=== PATIENT | female | born 1940 | race Caucasian/White ===

== ENCOUNTER → 2025-04-16 | Outpatient (CLI) | payer MEDICARE, OTHER ==
[2025-04-16 19:21] LABS: HCT 41.5 % (37.2-46.3); HGB 13.2 g/dL (12.0-15.0); MCH 31.4 pg (27.0-32.0); MCHC 31.8 g/dL (32.0-37.0); MCV 98.8 FL (80.0-97.0); NRBC Per 100 WBC 0 X 10*3/uL (0.00-0.01); Platelet Count 223 X 10*3/uL (140-440); RBC 4.20 X 10*6/uL (4.10-5.20); RDW 13.3 % (11.5-14.5); WBC 11.90 X 10*3/uL (4.50-10.00)
[2025-04-16 22:18] LABS: Anion Gap 16.10 mmol/L (4.00-12.00); BUN/Creat Ratio 35.89 Ratio (12.00-20.00); Blood Urea Nitrogen 64.6 mg/dL (9.0-27.0); Calcium 10.0 mg/dL (8.7-10.3); Carbon Dioxide 19.9 mmol/L (21.6-31.8); Chloride 105 mmol/L (96-109); Glucose 185 mg/dL (70-110); Potassium 5.5 mmol/L (3.5-5.5); Sodium 141 mmol/L (135-145)
[2025-04-16 22:19] LABS: NT-Pro-B-Type Natriuretic Pept 16290 pg/mL (0-450)
== END | disposition home or self-care (01) ==
LOC: LABWHC1 15:55
PROVIDERS: ATTEND Internal Medicine Cardiovascular Disease
DX: R07.2 Precordial pain (principal)
CPT/HCPCS: 36415; 80048; 83880; 85027

== ENCOUNTER 2025-04-24 07:08 | Inpatient (IN) | payer MEDICARE, OTHER ==
--- NOTE | 2025-04-24 07:38 | ED ---
SOB HPI - General Chief Complaint: Shortness of Breath Stated Complaint: WINNIE Time Seen by Provider: 04/24/25 07:22 Source: patient, EMS Mode of arrival: EMS - History of Present Illness Initial Comments: 84-year-old female with past medical history of coronary artery disease status post CABG x 3, TAVR who presents to the emergency department with shortness of breath. States that she has been short of breath for the past couple of days. She has had some lower extremity edema. She was on triamterene hydrochlorothiazide however her skilled laborer recently took her off due to her kidney disease. She continues to take Lasix 20 mg daily. She called her daughter this morning to state that she was having worsening respiratory distress. They did place her on 4 L of oxygen. But typically does not wear oxygen at home. She admits to a nonproductive cough. No fevers. No sick contacts. Denies history of underlying lung disease such as asthma or COPD. Patient does take steroids daily for her history of polymyalgia rheumatica. She denies history of DVT or PE. No chest pain currently. No other alleviating, precipitating or modifying factors - Related Data Home Medications Medication Instructions Recorded Confirmed Aspirin EC [Ecotrin] 325 mg PO DAILY 05/01/15 05/24/15 Atorvastatin [Lipitor] 80 mg PO HS 05/01/15 05/24/15 Calcium Carbonate [Calcium] 600 mg PO DAILY 05/01/15 05/24/15 Doxycycline Monohydrate [Oracea] 40 mg PO DAILY 05/01/15 05/24/15 Ezetimibe [Zetia] 10 mg PO HS 05/01/15 05/24/15 Glucosamine Sulfate 1,500 mg PO DAILY 05/01/15 05/24/15 Multivitamins, Thera [Multivitamin 1 tab PO DAILY 05/01/15 05/24/15 (formulary)] atenoloL [Tenormin] 25 mg PO BID 05/01/15 05/24/15 predniSONE 5 mg PO DAILY 05/01/15 05/24/15 Cholecalciferol [Vitamin D3 (25 2,000 unit PO DAILY@1200 05/24/15 05/24/15 Mcg = 1000 Iu)] Triamterene/Hydrochlorothiazid 37.5 tab PO BID 05/24/15 05/25/15 [Triamterene-Hctz 37.5-25 mg Tb] Previous Rx's Medication Instructions Recorded Artificial Tears-Hypromellose 1 drops BOTH EYES QID PRN #0 bottle 05/26/15 [Artificial Tear Drops] lisinopriL [Zestril] 2.5 mg PO DAILY #30 tab 05/26/15 Allergies Allergy/AdvReac Type Severity Reaction Status Date / Time cephalexin monohydrate Allergy Rash/Hives Verified 04/24/25 07:17 [From Keflex] clarithromycin [From Biaxin] Allergy Rash/Hives Verified 04/24/25 07:17 clonidine Allergy Dyspnea Verified 04/24/25 07:17 hydralazine HCl Allergy Rash/Hives Verified 04/24/25 07:17 [From Apresoline] amlodipine besylate AdvReac pedal edema Verified 04/24/25 07:17 [From Norvasc] sulfamethoxazole AdvReac stomach Verified 04/24/25 07:17 [From Bactrim] upset trimethoprim [From Bactrim] AdvReac stomach Verified 04/24/25 07:17 upset Review of Systems ROS Statement: Those systems with pertinent positive or pertinent negative responses have been documented in the HPI. ROS Other: All systems not noted in ROS Statement are negative. Past Medical History Past Medical History: Coronary Artery Disease (CAD), Hyperlipidemia, Hypertension, Rheumatoid Arthritis (RA) Additional Past Medical History / Comment(s): POLYMYALGIARHEAMATICA, ROSACEA History of Any Multi-Drug Resistant Organisms: None Reported Past Surgical History: Coronary Bypass/CABG, Heart Catheterization Additional Past Surgical History / Comment(s): CABG X3 in 2008, 2 HEART CATHS, LEFT CAROTID ENDARTECTOMY, ABIEL CATARACT, CRISTOBAL 05/06/15 Past Anesthesia/Blood Transfusion Reactions: No Reported Reaction Past Psychological History: No Psychological Hx Reported Smoking Status: Never smoker Past Alcohol Use History: None Reported Past Drug Use History: None Reported - Past Family History Mother Family Medical History: Hypertension General Exam General appearance: alert, in no apparent distress Head exam: Present: atraumatic, normocephalic, normal inspection Eye exam: Present: normal appearance, PERRL, EOMI. Absent: scleral icterus, conjunctival injection, periorbital swelling ENT exam: Present: normal exam, mucous membranes moist Neck exam: Present: normal inspection. Absent: tenderness, meningismus, lymphadenopathy Respiratory exam: Present: rales, accessory muscle use, other (Tachypnea). Absent: respiratory distress, wheezes, rhonchi, stridor Cardiovascular Exam: Present: regular rate, normal rhythm, normal heart sounds. Absent: systolic murmur, diastolic murmur, rubs, gallop, clicks GI/Abdominal exam: Present: soft, normal bowel sounds. Absent: distended, tenderness, guarding, rebound, rigid Extremities exam: Present: normal inspection, full ROM, pedal edema. Absent: t enderness, joint swelling, calf tenderness Back exam: Present: normal inspection Neurological exam: Present: alert, oriented X3, CN II-XII intact Psychiatric exam: Present: normal affect, normal mood Skin exam: Present: warm, dry, intact, normal color. Absent: rash Course Vital Signs 04/24/25 04/24/25 07:11 08:38 Temperature 100 F H Pulse Rate 84 73 Respiratory 40 H 30 H Rate Blood Pressure 179/69 138/59 O2 Sat by Pulse 98 97 Oximetry Medical Decision Making - Medical Decision Making Was pt. sent in by a medical professional or institution (, PA, LICENSED EMBALMER, urgent care, hospital, or halfway...) When possible be specific @ -No Did you speak to anyone other than the patient for history (EMS, parent, family, police, friend...)? What history was obtained from this source @ -Spoke with the daughter and EMS for history Did you review nursing and triage notes (agree or disagree)? Why? @ -I reviewed and agree with nursing and triage notes Were old charts reviewed (outside hosp., previous admission, EMS record, old EKG, old radiological studies, urgent care reports/EKG's, halfway records)? Report findings @ -No old charts were reviewed Differential Diagnosis (chest pain, altered mental status, abdominal pain women, abdominal pain men, vaginal bleeding, weakness, fever, dyspnea, syncope, headache, dizziness, GI bleed, back pain, seizure, CVA, palpatations, mental health, musculoskeletal)? @ -EM differential dyspnea EKG interpreted by me (3pts min.). @ -Yes which demonstrates sinus rhythm with rate of 80. AL interval 236. QRS 97. QTc of 390. Q wave in lead III. ST depression 1, 2, aVL, V4 through V6. ST depression was seen previously in the lateral leads on old EKG X-rays interpreted by me (1pt min.). @ -Yes which demonstrates congestive heart failure CT interpreted by me (1pt min.). @ -None done U/S interpreted by me (1pt. min.). @ -None done What testing was considered but not performed or refused? (CT, X-rays, U/S, labs)? Why? @ -None What meds were considered but not given or refused? Why? @ -None Did you discuss the management of the patient with other professionals (professionals i.e. , PA, LICENSED EMBALMER, lab, RT, psych nurse, older adult social work specialist, senior software qa engineer, teacher, planned giving officer, skilled nursing case manager)? Give summary @ -Spoke with Ciara from [facility] who will admit the patient Was smoking cessation discussed for >3mins.? @ -No Was critical care preformed (if so, how long)? @ -No Were there social determinants of health that impacted care today? How? (Homelessness, low income, unemployed, alcoholism, drug addiction, transportation, low edu. Level, literacy, decrease access to med. care, care home, rehab)? @ -No Was there de-escalation of care discussed even if they declined (Discuss DNR or withdrawal of care, Hospice)? DNR status @ -No What co-morbidities impacted this encounter? (DM, HTN, Smoking, COPD, CAD, Cancer, CVA, ARF, Chemo, Hep., AIDS, mental health diagnosis, sleep apnea, morbid obesity)? @ -Congestive heart failure, valvular disease, coronary artery disease Was patient admitted / discharged? Hospital course, mention meds given and route, prescriptions, significant lab abnormalities, going to OR and other pertinent info. @ -Upon arrival patient seen and evaluated in bed 7. Thorough history and physical exam was performed. IV access was established. Laboratory studies were conducted. Chest x-ray was performed. Patient appears to have exacerbation of congestive heart failure. Likely due to recent medication changes. She is given Lasix 40 mg. Procalcitonin is ordered. Leukocytosis possibly due to daily steroid use. Patient will be admitted to [facility]. Spoke with Ciara. Patient admitted in stable condition Undiagnosed new problem with uncertain prognosis? @ -No Drug Therapy requiring intensive monitoring for toxicity (Heparin, Nitro, Insulin, Cardizem)? @ -No Were any procedures done? @ -No Diagnosis/symptom? @ -Acute respiratory insufficiency, acute exacerbation of CHF, acute leukocyt osis Acute, or Chronic, or Acute on Chronic? @ -Acute on chronic Uncomplicated (without systemic symptoms) or Complicated (systemic symptoms)? @ -Complicated Side effects of treatment? @ -No Exacerbation, Progression, or Severe Exacerbation? @ -Yes Poses a threat to life or bodily function? How? (Chest pain, USA, ME, pneumonia, PE, COPD, DKA, ARF, appy, cholecystitis, CVA, Diverticulitis, Homicidal, Suicidal, threat to staff... and all critical care pts) @ -Yes this patient does require oxygen - Lab Data Result diagrams: 04/24/25 07:32 04/24/25 07:32 Lab Results 04/24/25 04/24/25 04/24/25 Range/Units 07:32 07:32 07:32 WBC 16.61 H (4.50-10.00) 10*3/uL RBC 3.72 L (4.10-5.20) 10*6/uL Hgb 12.2 (12.0-15.0) g/dL Hct 37.3 (37.2-46.3) % MCV 100.3 H (80.0-97.0) fL MCH 32.8 H (27.0-32.0) pg MCHC 32.7 (32.0-37.0) g/dL Plt Count 189 (140-440) 10*3/uL MPV 10.5 (9.5-12.2) fL Immature Gran % (Auto) 0.4 % Neutrophils % 78.3 % Lymphocytes % 9.8 % Monocytes % 9.9 % Eosinophils % 1.4 % Basophils % 0.2 % Immature Gran # 0.07 H (0.00-0.04) 10*3/uL Neutrophils # 13.00 H (1.80-7.70) 10*3/uL Lymphocytes # 1.62 (0.90-5.00) 10*3/uL Monocytes # 1.64 H (0.20-1.00) 10*3/uL Eosinophils # 0.24 (0.04-0.35) 10*3/uL Basophils # 0.04 (0.00-0.10) 10*3/uL PT 11.5 (10.0-12.5) sec INR 1.0 (<1.2) APTT 22.5 (22.0-30.0) sec Sodium 140 (137-145) mmol/L Potassium 4.2 (3.5-5.1) mmol/L Chloride 108 H (98-107) mmol/L Carbon Dioxide 24 (22-30) mmol/L Anion Gap 8 mmol/L BUN 41 H (7-17) mg/dL Creatinine 1.36 H (0.52-1.04) mg/dL Est GFR (CKD-EPI)AfAm 41 (>60 ml/min/1.73 sqM) Est GFR (CKD-EPI)NonAf 36 (>60 ml/min/1.73 sqM) Glucose 161 H (74-99) mg/dL Plasma Lactic Acid Sim (0.7-2.0) mmol/L Calcium 9.2 (8.4-10.2) mg/dL Total Bilirubin 1.4 H (0.2-1.3) mg/dL AST 52 H (14-36) U/L ALT 59 H (4-34) U/L Alkaline Phosphatase 82 (38-126) U/L Troponin I (0.000-0.034) ng/mL Total Protein 6.0 L (6.3-8.2) g/dL Albumin 3.7 (3.5-5.0) g/dL Influenza Type A (PCR) (Not Detectd) Influenza Type B (PCR) (Not Detectd) RSV (PCR) (Not Detectd) SARS-CoV-2 (PCR) (Not Detectd) 04/24/25 04/24/25 04/24/25 Range/Units 07:32 07:32 07:35 WBC (4.50-10.00) 10*3/uL RBC (4.10-5.20) 10*6/uL Hgb (12.0-15.0) g/dL Hct (37.2-46.3) % MCV (80.0-97.0) fL MCH (27.0-32.0) pg MCHC (32.0-37.0) g/dL Plt Count (140-440) 10*3/uL MPV (9.5-12.2) fL Immature Gran % (Auto) % Neutrophils % % Lymphocytes % % Monocytes % % Eosinophils % % Basophils % % Immature Gran # (0.00-0.04) 10*3/uL Neutrophils # (1.80-7.70) 10*3/uL Lymphocytes # (0.90-5.00) 10*3/uL Monocytes # (0.20-1.00) 10*3/uL Eosinophils # (0.04-0.35) 10*3/uL Basophils # (0.00-0.10) 10*3/uL PT (10.0-12.5) sec INR (<1.2) APTT (22.0-30.0) sec Sodium (137-145) mmol/L Potassium (3.5-5.1) mmol/L Chloride (98-107) mmol/L Carbon Dioxide (22-30) mmol/L Anion Gap mmol/L BUN (7-17) mg/dL Creatinine (0.52-1.04) mg/dL Est GFR (CKD-EPI)AfAm (>60 ml/min/1.73 sqM) Est GFR (CKD-EPI)NonAf (>60 ml/min/1.73 sqM) Glucose (74-99) mg/dL Plasma Lactic Acid Sim 1.6 (0.7-2.0) mmol/L Calcium (8.4-10.2) mg/dL Total Bilirubin (0.2-1.3) mg/dL AST (14-36) U/L ALT (4-34) U/L Alkaline Phosphatase (38-126) U/L Troponin I 1.310 H* (0.000-0.034) ng/mL Total Protein (6.3-8.2) g/dL Albumin (3.5-5.0) g/dL Influenza Type A (PCR) Not Detected (Not Detectd) Influenza Type B (PCR) Not Detected (Not Detectd) RSV (PCR) Not Detected (Not Detectd) SARS-CoV-2 (PCR) Not Detected (Not Detectd) Disposition Clinical Impression: Congestive heart failure, Acute respiratory distress syndrome in adult Disposition: ADMITTED IP TO THIS HOSP Condition: Serious Is patient prescribed a controlled substance at d/c from ED?: No Referrals: Nancy Shelton MD [Primary Care Provider] - 1-2 days Time of Disposition: 09:04 Decision to Admit Reason: Admit from EC Decision Date: 04/24/25 Decision Time: 09:04
[2025-04-24 07:51] LABS: Basophils # (A) 0.04 10*3/uL (0.00-0.10); Basophils % (A) 0.2 %; Eosinophils # (A) 0.24 10*3/uL (0.04-0.35); Eosinophils % (A) 1.4 %; HCT 37.3 % (37.2-46.3); HGB 12.2 g/dL (12.0-15.0); Lymphocytes # (A) 1.62 10*3/uL (0.90-5.00); Lymphocytes % (A) 9.8 %; MCH 32.8 pg (27.0-32.0); MCHC 32.7 g/dL (32.0-37.0); MCV 100.3 fL (80.0-97.0); Monocytes # (A) 1.64 10*3/uL (0.20-1.00); Monocytes % (A) 9.9 %; Neutrophils # (A) 13.00 10*3/uL (1.80-7.70); Neutrophils % (A) 78.3 %; Platelet Count 189 10*3/uL (140-440); RBC 3.72 10*6/uL (4.10-5.20); RDW 13.7 % (11.5-14.5); WBC 16.61 10*3/uL (4.50-10.00)
--- NOTE | 2025-04-24 08:16 | XR ---
EXAMINATION TYPE: XR chest 2V DATE OF EXAM: 04/24/2025 8:10 AM COMPARISON: 05/24/2015 CLINICAL INDICATION: Female, 84 years old with history of difficulty breathing, TECHNIQUE: XR chest 2V view(s) obtained. FINDINGS: The heart size is enlarged. The pulmonary vasculature is common. Diffuse increased lung markings are present bilaterally IMPRESSION: 1. Clinical correlation for congestive heart failure is recommended. [facility], Workstation: [facility] [place] [facility], 04/24/2025 8:13 AM
[2025-04-24 08:23] LABS: INR 1.0 (<1.2); Partial Thromboplastin Time 22.5 sec (22.0-30.0); Prothrombin Time 11.5 sec (10.0-12.5)
[2025-04-24 08:28] LABS: RSV Not Detected (Not Detectd)
[2025-04-24 08:30] LABS: ALT 59 U/L (4-34); AST 52 U/L (14-36); African American GFR (CKD) 41 (>60 ml/min/1.73 sqM); Albumin 3.7 g/dL (3.5-5.0); Alkaline Phosphatase 82 U/L (38-126); Anion Gap 8 mmol/L; Blood Urea Nitrogen 41 mg/dL (7-17); Calcium 9.2 mg/dL (8.4-10.2); Carbon Dioxide 24 mmol/L (22-30); Chloride 108 mmol/L (98-107); Glucose 161 mg/dL (74-99); Non-African American GFR(CKD) 36 (>60 ml/min/1.73 sqM); Potassium 4.2 mmol/L (3.5-5.1); Sodium 140 mmol/L (137-145); Total Protein 6.0 g/dL (6.3-8.2)
[2025-04-24] MEDS: ACETAMINOPHEN TAB 500 MG TAB PO STA (08:40)
[2025-04-24 09:31] LABS: NT-Pro-B-Type Natriuretic Pept 28600 pg/mL
[2025-04-24] MEDS: LEVOFLOXACIN 750 MG TAB PO STA (09:46)
[2025-04-24] MEDS: FUROSEMIDE 10 MG/ML 4 ML VIAL IV STA (09:47)
[2025-04-24] MEDS ORDERED: HEPARIN SODIUM 1,000 UN/ML (10ML VL) IV PRN (10:04)
[2025-04-24] MEDS: ASPIRIN 81 MG PO STA (11:22)
[2025-04-24] MEDS: HEPARIN SOD,PORK IN 0.45% NACL 25,000 UNIT in 0.45% NACL 1 250ML.BAG IV SCH (11:26)
[2025-04-24] MEDS: HEPARIN SODIUM 1,000 UN/ML (10ML VL) IV ONE (11:26)
[2025-04-24] MEDS: NITROGLYCERIN SL TABS 0.4 MG TAB SUBLINGUAL SCH (11:28)
--- NOTE | 2025-04-24 11:57 | P.HPIM ---
History of Present Illness This is a pleasant 84 years old female with past medical history of multiple medical problems: Coronary artery disease with no history of lung disease. She does not use oxygen at home Presents because of shortness of breath that has been going on on and off for 2 weeks associate with exertional dyspnea but yesterday got really worse she has to come to emergency room although she does not have any chest pain no cough or phlegm. Little headache but no overt dizziness or weakness or numbness in the extremities. No specific GI surgery or symptom. She is complaining from neck pain and ear pain whenever she have this shortness of breath on exertion which is retrieved once she sits down for about 15 minutes indicating it might be an anginal pain She is breathing better than since she came in Also patient had many small bowel movement Her vice president underwriting Dr. Frank Exam she has bilateral basal crepitation and 2-3+ bilateral pitting leg edema She has been afebrile blood pressure stable. Mildly tachypneic in the mid to low 20s. Saturating 97% on 3 L oxygen via nasal cannula. She has low-grade fever about 1 drink Troponin is 1.3, chronically elevated but not to this level EKG showing sinus rhythm at [address] depression in V4-V6 and aVL. Chest x-ray showing cardiomegaly with pulmonary vascular congestion I reviewed and agree. proBNP is elevated 28,600. Patient currently on IV Lasix for milligram twice daily as well as heparin drip. Also patient received Levaquin and will continue on same dose 75 mg every 48 hours She is currently on IV Lasix 40 mg twice daily heparin drip and Levaquin and aspirin Review of Systems Review of systems CONSTITUTIONAL: No fever, no malaise, no fatigue. HEENT: No recent visual problems or hearing problems. Denied any sore throat. CARDIOVASCULAR: No orthopnea, PND, no palpitations, no syncope. PULMONARY: No shortness of breath, no cough, no hemoptysis. GASTROINTESTINAL: No diarrhea, no nausea, no vomiting, no abdominal pain. Normoactive bowel sounds. NEUROLOGICAL: No headaches, no weakness, no numbness. HEMATOLOGICAL: Denies any bleeding or petechiae. GENITOURINARY: Denies any burning micturition, frequency, or urgency. MUSCULOSKELETAL/RHEUMATOLOGICAL: Denies any joint pain, swelling, or any muscle pain. ENDOCRINE: Denies any polyuria or polydipsia. Past Medical History Past Medical History: Coronary Artery Disease (CAD), Hyperlipidemia, Hypertension, Rheumatoid Arthritis (RA) Additional Past Medical History / Comment(s): POLYMYALGIARHEAMATICA, ROSACEA History of Any Multi-Drug Resistant Organisms: None Reported Past Surgical History: Coronary Bypass/CABG, Heart Catheterization Additional Past Surgical History / Comment(s): CABG X3 in 2008, 2 HEART CATHS, LEFT CAROTID ENDARTECTOMY, ABIEL CATARACT, CRISTOBAL 05/06/15 Past Anesthesia/Blood Transfusion Reactions: No Reported Reaction Past Psychological History: No Psychological Hx Reported Smoking Status: Never smoker Past Alcohol Use History: None Reported Past Drug Use History: None Reported - Past Family History Mother Family Medical History: Hypertension Medications and Allergies Home Medications Medication Instructions Recorded Confirmed Type Atorvastatin [Lipitor] 80 mg PO HS 05/01/15 04/24/25 History Ezetimibe [Zetia] 10 mg PO HS 05/01/15 04/24/25 History atenoloL [Tenormin] 25 mg PO BID 05/01/15 04/24/25 History predniSONE 5 mg PO DAILY 05/01/15 04/24/25 History Cholecalciferol [Vitamin D3 (25 50 mcg PO HS 05/24/15 04/24/25 History Mcg = 1000 Iu)] Aspirin EC [Ecotrin Low Dose] 81 mg PO DAILY 04/24/25 04/24/25 History Azelaic Acid 1 applic TOPICAL DAILY PRN 04/24/25 04/24/25 History Carboxymethylcellulose Sodium 1 drop BOTH EYES QID PRN 04/24/25 04/24/25 History [Refresh Tears] Furosemide [Lasix] 20 mg PO DAILY 04/24/25 04/24/25 History Glucosam/Deny-Msm1/C/Dennis/Bosw 2 tab PO HS 04/24/25 04/24/25 History [Glucosamine-Chondroitin Tablet] Hydrocortisone Cream 1 applic TOPICAL DAILY PRN 04/24/25 04/24/25 History [Hydrocortisone 2.5% Cream] Isosorbide Mononitrate ER [Imdur] 30 mg PO DAILY 04/24/25 04/24/25 History Ketoconazole 2% Cream [Nizoral 2%] 1 applic TOPICAL BID PRN 04/24/25 04/24/25 History Potassium Chloride 10 meq PO DAILY 04/24/25 04/24/25 History clindamycin HCL [Cleocin] 600 mg PO ONCE PRN 04/24/25 04/24/25 History lisinopriL [Zestril] 10 mg PO DAILY 04/24/25 04/24/25 History Allergies Allergy/AdvReac Type Severity Reaction Status Date / Time cephalexin monohydrate Allergy Rash/Hives Verified 04/24/25 11:41 [From Keflex] clarithromycin [From Biaxin] Allergy Rash/Hives Verified 04/24/25 11:41 clonidine Allergy Dyspnea Verified 04/24/25 11:41 hydralazine HCl Allergy Rash/Hives Verified 04/24/25 11:41 [From Apresoline] amlodipine besylate AdvReac pedal edema Verified 04/24/25 11:41 [From Norvasc] sulfamethoxazole AdvReac stomach Verified 04/24/25 11:41 [From Bactrim] upset trimethoprim [From Bactrim] AdvReac stomach Verified 04/24/25 11:41 upset Physical Exam Vitals: Vital Signs Temp Pulse Resp BP Pulse Ox 04/24/25 11:36 98.6 F 70 30 H 114/47 98 04/24/25 09:44 98.7 F 77 28 H 113/49 97 04/24/25 08:38 73 30 H 138/59 97 04/24/25 07:11 100 F H 84 40 H 179/69 98 Intake and Output 04/23/25 04/24/25 04/24/25 22:59 06:59 14:59 Other: Weight 72.575 kg GENERAL: The patient is alert and oriented x3, not in any acute distress. Well developed, well nourished. HEENT: Pupils are round and equally reacting to light. EOMI. No scleral icterus. No conjunctival pallor. Normocephalic, atraumatic. No pharyngeal erythema. No thyromegaly. CARDIOVASCULAR: S1 and S2 present. No murmurs, rubs, or gallops. PULMONARY: Chest is clear to auscultation, no wheezing , no crackles. ABDOMEN: Soft, nontender, nondistended, normoactive bowel sounds. No palpable organomegaly. MUSCULOSKELETAL: No joint swelling or deformity. EXTREMITIES: No cyanosis, clubbing, or pedal edema. NEUROLOGICAL: Gross neurological examination did not reveal any focal deficits. SKIN: No rashes. no petechiae. Results CBC & Chem 7: 04/24/25 07:32 04/24/25 07:32 Labs: Abnormal Lab Results - Last 24 Hours (Table) 04/24/25 04/24/25 04/24/25 Range/Units 07:32 07:32 07:32 WBC 16.61 H (4.50-10.00) 10*3/uL RBC 3.72 L (4.10-5.20) 10*6/uL MCV 100.3 H (80.0-97.0) fL MCH 32.8 H (27.0-32.0) pg Immature Gran # 0.07 H (0.00-0.04) 10*3/uL Neutrophils # 13.00 H (1.80-7.70) 10*3/uL Monocytes # 1.64 H (0.20-1.00) 10*3/uL Chloride 108 H (98-107) mmol/L BUN 41 H (7-17) mg/dL Creatinine 1.36 H (0.52-1.04) mg/dL Glucose 161 H (74-99) mg/dL Total Bilirubin 1.4 H (0.2-1.3) mg/dL AST 52 H (14-36) U/L ALT 59 H (4-34) U/L Troponin I 1.310 H* (0.000-0.034) ng/mL Total Protein 6.0 L (6.3-8.2) g/dL Assessment and Plan Assessment: Acute CHF exacerbation Cannot rule out pneumonia Elevated troponin acute on chronic suspicious for non-STEMI Chronic leukocytosis CKD stage III Acute hypoxic respiratory failure Plan: Continue with heparin drip Continue with IV Lasix Continue with antibiotics Levaquin, check cultures Cardiology team consult Monitor input output and creatinine level Labs and medication were reviewed.. Continue same treatment. Continue with s ymptomatic treatment. Resume home medication. Monitor labs and vitals. DVT and GI prophylaxis. Further recommendations as per clinical course of the patient DVT prophylaxis: heparin GI Prophylaxis: P Protonix PT/OT: Pending Prognosis is guarded
[2025-04-24] MEDS ORDERED: AZELAIC ACID TOPICAL PRN (12:35)
[2025-04-24] MEDS ORDERED: HYDROCORTISONE 1% CREAM 30 GM TUBE TOPICAL PRN (12:35)
[2025-04-24] MEDS ORDERED: CLOTRIMAZOLE 1% CREAM 30 GM TUBE TOPICAL PRN (12:35)
[2025-04-24] MEDS ORDERED: ARTIFICIAL TEARS-HYPROMELLOSE DROPS 15 ML BTL BOTH EYES PRN (12:35)
[2025-04-24] MEDS: FUROSEMIDE 10 MG/ML 4 ML VIAL IV SCH (21:32)
[2025-04-24] MEDS: EZETIMIBE 10 MG TAB PO SCH (21:32)
[2025-04-24] MEDS: ATORVASTATIN 80 MG TAB PO SCH (21:32)
[2025-04-24] MEDS: CHOLECALCIFEROL 25 MCG (1000 IU) TABLET PO SCH (21:32)
[2025-04-25 06:35] LABS: Basophils # (A) 0.03 10*3/uL (0.00-0.10); Basophils % (A) 0.2 %; Eosinophils # (A) 0.15 10*3/uL (0.04-0.35); Eosinophils % (A) 1.2 %; HCT 36.7 % (37.2-46.3); HGB 11.8 g/dL (12.0-15.0); Lymphocytes # (A) 1.31 10*3/uL (0.90-5.00); Lymphocytes % (A) 10.4 %; MCH 32.1 pg (27.0-32.0); MCHC 32.2 g/dL (32.0-37.0); MCV 99.7 fL (80.0-97.0); Monocytes # (A) 1.37 10*3/uL (0.20-1.00); Monocytes % (A) 10.8 %; Neutrophils # (A) 9.72 10*3/uL (1.80-7.70); Neutrophils % (A) 77.0 %; Platelet Count 174 10*3/uL (140-440); RBC 3.68 10*6/uL (4.10-5.20); RDW 13.5 % (11.5-14.5); WBC 12.63 10*3/uL (4.50-10.00)
[2025-04-25 06:58] LABS: INR 1.1 (<1.2); Partial Thromboplastin Time 45.1 sec (22.0-30.0); Prothrombin Time 12.1 sec (10.0-12.5)
--- NOTE | 2025-04-25 07:59 | XR ---
EXAMINATION TYPE: XR chest 2V DATE OF EXAM: 04/25/2025 7:44 AM COMPARISON: 04/24/2025 CLINICAL INDICATION: Female, 84 years old with history of pneumonia, TECHNIQUE: XR chest 2V view(s) obtained. FINDINGS: The heart size is mildly prominent. Post TAVR. The pulmonary vasculature is normal. Right upper lobe infiltrate is present. Findings are worsening. IMPRESSION: 1. Worsening right upper lobe infiltrate. Correlate for pneumonia. Follow-up is recommended [facility], , 04/25/2025 7:57 AM
--- NOTE | 2025-04-25 08:45 | P.CRDCN ---
History of Present Illness Consult date: 04/25/25 History of present illness: Patient is a 84-year-old female with history of coronary disease status post CABG in 2008 and severe aortic stenosis status post TAVR in 2014, CKD stage IIIb, hypertension, hyperlipidemia, type 2 diabetes mellitus came to the ER yesterday with complaints of worsening shortness of breath on exertion associated with worsening bilateral leg edema since 3 to 4 days. Also endorses orthopnea and PND. Her primary hog pusher is Dr. Melvin who she saw last week on Tuesday who discontinued her triamterene/hydrochlorothiazide for worsening kidney function and also prescribed Imdur since she was complaining of pain and discomfort in her neck, ears and jaw last week. Patient denies chest pain, lightheadedness, acute vision changes. She is compliant with her medications and eats low-salt diet. She is taking prednisone for history of polymyalgia rheumatica. Denies any history of DVT or pulm embolism. Most recent echocardiogram was April 2024 with LVEF of 60 to 65% At the time of the interview, patient continues to be on 3 L of supplemental oxygen via nasal cannula however feels less short of breath and her leg edema has improved as well. She continues to deny chest pain. She is currently on IV Lasix. Labs and images on admission: WBC 16.61 improved to 12.63 today, hemoglobin 11.8, sodium 140, potassium 4.2, BUN 41, creatinine 1.36, EGFR 36, total bili 1.4, AST 52, ALT 59, NT proBNP 49819, troponin I 1.3, 2.050 Chest x-ray on 04/24/2025 shows pulmonary vascular congestion EKG ST segment depression in lead II lead I, aVL, V4, V5, V6 and first-degree AV block. Physical examination: Vital signs reviewed General: non toxic, no distress Head: atraumatic, normocephalic, symmetric Eyes: EOMI, no lid lag, anicteric sclera, pupils equal round reactive to light ENT: Nose and ears atraumatic Neck: No cervical lymphadenopathy, trachea midline, supple Mouth: no lip lesion, mucus membranes moist Cardiovascular: S1S2 reg, grade 3/6 systolic murmur, positive dorsalis pedis pulse bilateral, 1+ bilateral pitting edema Lungs: Decreased bilateral breath sounds with mild crackles and no use of accessory muscles noted Extremities: Cool lower extremities Abdominal: soft, nontender to palpation, no guarding Psych: Alert, oriented, appropriate affect Assessment: #NSTEMI #Acute on chronic congestive heart failure exacerbation #Severe aortic stenosis #CKD stage IIIb #History of CAD status post CABG #History of severe aortic stenosis status post TAVR #Leukocytosis likely reactive Plan: ALBA score is 5 Will continue to optimize patient and will reassess for possible left heart catheterization tomorrow Continue with heparin drip Aspirin 81 mg OD, Lipitor 80 mg p.o., atenolol 25 mg p.o. twice daily Continue with IV Lasix 40 mg every 12 hours Order echocardiogram for cardiac structural assessment Strict I's and O's, daily weight, fluid restriction to 1.5 L/day Continue with oxygen supplement therapy Past Medical History Past Medical History: Coronary Artery Disease (CAD), Heart Failure, Hyperlipidemia, Hypertension, Rheumatoid Arthritis (RA) Additional Past Medical History / Comment(s): POLYMYALGIARHEAMATICA, ROSACEA History of Any Multi-Drug Resistant Organisms: None Reported Past Surgical History: Coronary Bypass/CABG, Heart Catheterization Additional Past Surgical History / Comment(s): CABG X3 in 2008, 2 HEART CATHS, LEFT CAROTID ENDARTECTOMY, ABIEL CATARACT, CRISTOBAL 05/06/15 TAVR 10 years ago. cataract sx. Past Anesthesia/Blood Transfusion Reactions: No Reported Reaction Past Psychological History: No Psychological Hx Reported Smoking Status: Never smoker Past Alcohol Use History: None Reported Past Drug Use History: None Reported - Past Family History Mother Family Medical History: Hypertension Medications and Allergies Home Medications Medication Instructions Recorded Confirmed Type Atorvastatin [Lipitor] 80 mg PO HS 05/01/15 04/24/25 History Ezetimibe [Zetia] 10 mg PO HS 05/01/15 04/24/25 History atenoloL [Tenormin] 25 mg PO BID 05/01/15 04/24/25 History predniSONE 5 mg PO DAILY 05/01/15 04/24/25 History Cholecalciferol [Vitamin D3 (25 50 mcg PO HS 05/24/15 04/24/25 History Mcg = 1000 Iu)] Aspirin EC [Ecotrin Low Dose] 81 mg PO DAILY 04/24/25 04/24/25 History Azelaic Acid 1 applic TOPICAL DAILY PRN 04/24/25 04/24/25 History Carboxymethylcellulose Sodium 1 drop BOTH EYES QID PRN 04/24/25 04/24/25 History [Refresh Tears] Denosumab [Prolia] 60 mg SQ Q180D 04/24/25 04/24/25 History Furosemide [Lasix] 20 mg PO DAILY 04/24/25 04/24/25 History Glucosam/Deny-Msm1/C/Dennis/Bosw 2 tab PO HS 04/24/25 04/24/25 History [Glucosamine-Chondroitin Tablet] Hydrocortisone Cream 1 applic TOPICAL DAILY PRN 04/24/25 04/24/25 History [Hydrocortisone 2.5% Cream] Isosorbide Mononitrate ER [Imdur] 30 mg PO DAILY 04/24/25 04/24/25 History Ketoconazole 2% Cream [Nizoral 2%] 1 applic TOPICAL BID PRN 04/24/25 04/24/25 History Potassium Chloride 10 meq PO DAILY 04/24/25 04/24/25 History clindamycin HCL [Cleocin] 600 mg PO ONCE PRN 04/24/25 04/24/25 History lisinopriL [Zestril] 10 mg PO DAILY 04/24/25 04/24/25 History metroNIDAZOLE 0.75% CREAM 1 applic TOPICAL DAILY 04/24/25 04/24/25 History [Metrocream 0.75%] Allergies Allergy/AdvReac Type Severity Reaction Status Date / Time cephalexin monohydrate Allergy Rash/Hives Verified 04/24/25 12:17 [From Keflex] clarithromycin [From Biaxin] Allergy Rash/Hives Verified 04/24/25 12:17 clonidine Allergy Dyspnea/Water Verified 04/24/25 12:17 retention hydralazine HCl Allergy Rash/Hives/Increased Verified 04/24/25 12:17 [From Apresoline] BP amlodipine besylate AdvReac pedal edema Verified 04/24/25 12:17 [From Norvasc] sulfamethoxazole AdvReac stomach Verified 04/24/25 12:17 [From Bactrim] upset trimethoprim [From Bactrim] AdvReac stomach Verified 04/24/25 12:17 upset Physical Exam Vitals: Vital Signs Temp Pulse Pulse Resp BP BP BP 04/25/25 04:00 98.3 F 75 32 H 125/66 04/25/25 00:00 98.6 F 71 32 H 111/56 04/24/25 19:56 98.9 F 77 20 123/68 04/24/25 17:04 98.1 F 78 22 120/69 04/24/25 16:23 04/24/25 12:59 98.0 F 04/24/25 12:49 69 16 128/54 04/24/25 11:36 98.6 F 70 30 H 114/47 04/24/25 09:44 98.7 F 77 28 H 113/49 04/24/25 08:38 73 30 H 138/59 Pulse Ox 04/25/25 04:00 97 04/25/25 00:00 97 04/24/25 19:56 97 04/24/25 17:04 98 04/24/25 16:23 97 04/24/25 12:59 04/24/25 12:49 04/24/25 11:36 98 04/24/25 09:44 97 04/24/25 08:38 97 Intake and Output 04/24/25 04/25/25 04/25/25 22:59 06:59 14:59 Output Total 630 800 Balance -630 -800 Output: Urine 630 800 Other: Voiding Method Bedside Commode Bedside Commode Weight 73.5 kg Results 04/25/25 06:01 04/24/25 07:32 Cardiac Enzymes 04/24/25 04/24/25 Range/Units 07:32 14:50 Troponin I 1.310 H* 2.050 H* (0.000-0.034) ng/mL Coagulation 04/24/25 04/25/25 Range/Units 17:35 06:01 PT 12.1 (10.0-12.5) sec APTT 51.4 H 45.1 H (22.0-30.0) sec CBC 04/25/25 Range/Units 06:01 WBC 12.63 H (4.50-10.00) 10*3/uL RBC 3.68 L (4.10-5.20) 10*6/uL Hgb 11.8 L (12.0-15.0) g/dL Hct 36.7 L (37.2-46.3) % Plt Count 174 (140-440) 10*3/uL Current Medications Generic Name Dose Route Start Last Admin Trade Name Freq PRN Reason Stop Dose Admin Artificial Tears 1 drops 04/24/25 12:35 Artificial Tears-Hypromellose Drops 15 Ml Btl BOTH EYES QID PRN Dry Eye(s) Aspirin 325 mg 04/25/25 09:00 Aspirin 325 Mg Tab PO DAILY [facility] Atenolol 25 mg 04/24/25 21:00 04/24/25 21:31 Atenolol 25 Mg Tab PO 25 mg BID [facility] Administration Atorvastatin Calcium 80 mg 04/24/25 21:00 04/24/25 21:32 Atorvastatin 80 Mg Tab PO 80 mg HS [facility] Administration Cholecalciferol 50 mcg 04/24/25 21:00 04/24/25 21:32 Cholecalciferol 25 Mcg (1000 Iu) Tablet PO 50 mcg HS [facility] Administration Clotrimazole 1 applic 04/24/25 12:35 Clotrimazole 1% Cream 30 Gm Tube TOPICAL BID PRN rash/irritation Ezetimibe 10 mg 04/24/25 21:00 04/24/25 21:32 Ezetimibe 10 Mg Tab PO 10 mg HS [facility] Administration Furosemide 40 mg 04/24/25 21:00 04/24/25 21:32 Furosemide 10 Mg/Ml 4 Ml Vial IV 40 mg Q12HR [facility] Administration Heparin Sodium (Porcine) 0 unit 04/24/25 10:04 Heparin Sodium 1,000 Un/Ml (10ml Vl) IV PER PROTOCOL PRN Low PTT Protocol Hydrocortisone 1 applic 04/24/25 12:35 Hydrocortisone 1% Cream 30 Gm Tube TOPICAL DAILY PRN Rash Heparin Sodium/Sodium Chloride 250 mls @ 8.709 mls/hr 04/24/25 10:15 04/24/25 11:26 25,000 unit/ Sodium Chloride IV 12 units/kg/hr .Q24H [facility] 8.709 mls/hr Administration Protocol 12 UNITS/KG/HR Levofloxacin 500 mg/ IV 100 mls @ 100 mls/hr 04/26/25 09:00 Solution IVPB Q48H [facility] Protocol Isosorbide Mononitrate 30 mg 04/25/25 09:00 Isosorbide Mononitrate Er 30 Mg Tab.Er.24h PO DAILY [facility] Metronidazole 1 applic 04/25/25 09:00 Metronidazole 0.75% Cream 45 Gm Tube TOPICAL DAILY [facility] Protocol Non-Formulary Medication 1 applic 04/24/25 12:35 Azelaic Acid [Azelaic Acid] TOPICAL DAILY PRN rosacea on face Pantoprazole Sodium 40 mg 04/25/25 09:00 Pantoprazole 40 Mg/10 Ml Vial IVP DAILY [facility] Potassium Chloride 10 meq 04/25/25 09:00 Potassium Chloride Er 10 Meq Tab.Er.Prt PO DAILY [facility] Prednisone 5 mg 04/24/25 12:45 04/24/25 13:19 Prednisone 5 Mg Tab PO 5 mg DAILY [facility] Administration Intake and Output 04/24/25 04/25/25 04/25/25 22:59 06:59 14:59 Output Total 630 800 Balance -630 -800 Output: Urine 630 800 Other: Voiding Method Bedside Commode Bedside Commode Weight 73.5 kg 04/25/25 06:01 04/24/25 07:32
[2025-04-25] MEDS ORDERED: NON FORMULARY DRUG (Aspirin Ec 81 MG Tablet) PO SCH (09:00)
[2025-04-25] MEDS: PANTOPRAZOLE 40 MG/10 ML VIAL IVP SCH (09:35)
[2025-04-25] MEDS: POTASSIUM CHLORIDE ER 10 MEQ TAB.ER.PRT PO SCH (09:36)
[2025-04-25] MEDS: ASPIRIN 325 MG TAB PO SCH (09:36)
[2025-04-25] MEDS: ISOSORBIDE MONONITRATE ER 30 MG TAB.ER.24H PO SCH (09:36)
--- NOTE | 2025-04-25 13:54 | CA ---
Transthoracic Echo Report Name: Danisha Cody Age: 84 Gender: F : 1940 Exam Date: 04/25/2025 10:35 Exam Location: [place] [facility] Ht (in): 60 Wt (lb): 162 Ordering Physician: Hugo Oneill MD Attending/Referring Phys: Scoop Driver Fifi Patel RDCS Procedure CPT: Indications: chf Cardiac Hx: TAVR done 2014 Technical Quality: Fair Contrast 1: Total Dose (mL): Contrast 2: Total Dose (mL): MEASUREMENTS (Male / Female) Normal Values 2D ECHO LV Diastolic Diameter PLAX 5.6 cm 4.2 - 5.9 / 3.9 - 5.3 cm LV Systolic Diameter PLAX 4.6 cm IVS Diastolic Thickness 1.1 cm 0.6 - 1.0 / 0.6 - 0.9 cm LVPW Diastolic Thickness 0.9 cm 0.6 - 1.0 / 0.6 - 0.9 cm LV Relative Wall Thickness 0.4 RV Internal Dim ED PLAX 1.5 cm LVOT Diameter 1.5 cm LA Systolic Diameter LX 5.4 cm 3.0 - 4.0 / 2.7 - 3.8 cm LV Diastolic Volume MOD BP 85.8 cm??? 67 - 155 / 56 - 104 cm??? LV Systolic Volume MOD BP 48.8 cm??? - / 19 - 49 cm??? LV Ejection Fraction MOD BP 43.2 % >= 55 % LV Cardiac Index MOD BP 1568.8 cm???/min???m??? LV Diastolic Volume MOD 4C 84.2 cm??? LV Systolic Volume MOD 4C 56.7 cm??? LV Ejection Fraction MOD 4C 32.7 % LV Cardiac Index MOD 4C 1167.3 cm???/min???m??? LV Diastolic Length 4C 7.3 cm LV Systolic Length 4C 6.5 cm LV Diastolic Volume MOD 2C 85.4 cm??? LV Systolic Volume MOD 2C 42.6 cm??? LV Ejection Fraction MOD 2C 50.1 % LV Cardiac Index MOD 2C 1813.0 cm???/min???m??? LV Diastolic Length 2C 7.1 cm LV Systolic Length 2C 6.6 cm LA Volume 97.5 cm??? 18 - 58 / 22 - 52 cm??? LA Volume Index 54.4 cm???/m??? 16 - 28 cm???/m??? M-MODE Aortic Root Diameter MM 2.0 cm LA Systolic Diameter MM 5.8 cm LA Ao Ratio MM 2.8 DOPPLER AV Peak Velocity 501.0 cm/s AV Peak Gradient 100.4 mmHg AV Mean Velocity 399.3 cm/s AV Mean Gradient 69.9 mmHg AV Velocity Time Integral 133.6 cm AI Peak Velocity 333.5 cm/s AI Peak Gradient 44.5 mmHg AI Pressure Half Time 363.2 ms LVOT Peak Velocity 122.5 cm/s LVOT Peak Gradient 6.0 mmHg LVOT Velocity Time Integral 35.2 cm LVOT Stroke Volume 60.5 cm??? LVOT Stroke Volume Index 35.4 ml/m??? LVOT Cardiac Index 2560.7 cm???/min???m??? AV Area Cont Eq vti 0.5 cm??? AV Area Cont Eq pk 0.4 cm??? MV Peak Velocity 158.0 cm/s MV Peak Gradient 10.0 mmHg MV Mean Velocity 86.6 cm/s MV Mean Gradient 3.7 mmHg MV Velocity Time Integral 46.4 cm MV Area PHT 2.9 cm??? MR Peak Velocity 641.5 cm/s MR Peak Gradient 164.6 mmHg MR Flow Rate PISA 155.1 cm???/s Mitral E Point Velocity 162.3 cm/s Mitral A Point Velocity 128.4 cm/s Mitral E to A Ratio 1.3 MV Deceleration Time 262.3 ms TR Peak Velocity 337.4 cm/s TR Peak Gradient 45.5 mmHg Right Ventricular Systolic Press 54.2 mmHg FINDINGS Left Ventricle Left ventricular ejection fraction is estimated at 40-45 %. Mildly increased septal wall thickness. Mildly increased left ventricular diastolic diameter. Hypokinetic septum. Right Ventricle Normal right ventricular size and function. Moderate to severe pulmonary hypertension. Right Atrium Normal right atrial size. Left Atrium Severely increased left atrial diameter. Severely increased left atrial volume. Mitral Valve Mitral valve thickened. Mitral annular calcification. Mild mitral stenosis. [id number] mitral regurgitation. Aortic Valve Aortic valve not well visualized. Gradient recorded across the prosthetic aortic valve above the expected range.Severe prosthetic aortic valve stenosis. Bioprosthetic aortic valve with a peak velocity of 5.0 m/s, peak gradient 100 mmHg, mean gradient 70mmHg, and estimated aortic valve area of .4cm???. Paravalvular aortic regurgitation. Tricuspid Valve Structurally normal tricuspid valve. Mild tricuspid regurgitation. No tricuspid stenosis. Pulmonic Valve Structurally normal pulmonic valve. Trace to mild pulmonic regurgitation. No pulmonic stenosis. Pericardium No pericardial or pleural effusion. Aorta Normal size aortic root and proximal ascending aorta. CONCLUSIONS LVEF 40 to 45% Hypokinetic septum. Mild concentric LVH RV size and systolic function with RVSP estimated at 54 mmHg suggestive of moderate to severe pulmonary hypertension Severe left atrial dilatation Moderate to severe mitral regurgitation TAVR valve in place, with concerns of severe stenosis with mean gradient approximately 60 mmHg with AT 112 msec. VTI ratio 0.25 Moderate aortic regurgitation Previewed by: Dr Elliott Tam (Electronically Signed) Final Date: 25 April 2025 13:10
[2025-04-25] MEDS: DOCUSATE 100 MG CAP PO SCH (15:04)
--- NOTE | 2025-04-25 17:18 | P.PN ---
Subjective Progress Note Date: 04/25/25 This is a pleasant 84 years old female with past medical history of multiple medical problems: Coronary artery disease with no history of lung disease. She does not use oxygen at home Presents because of shortness of breath that has been going on on and off for 2 weeks associate with exertional dyspnea but yesterday got really worse she has to come to emergency room although she does not have any chest pain no cough or phlegm. Little headache but no overt dizziness or weakness or numbness in the extre mities. No specific GI surgery or symptom. She is complaining from neck pain and ear pain whenever she have this shortness of breath on exertion which is retrieved once she sits down for about 15 minutes indicating it might be an anginal pain She is breathing better than since she came in Also patient had many small bowel movement Her assistant spa manager Dr. Melvin Exam she has bilateral basal crepitation and 2-3+ bilateral pitting leg edema She has been afebrile blood pressure stable. Mildly tachypneic in the mid to low 20s. Saturating 97% on 3 L oxygen via nasal cannula. She has low-grade fever about 1 drink Troponin is 1.3, chronically elevated but not to this level EKG showing sinus rhythm at [address] depression in V4-V6 and aVL. Chest x-ray showing cardiomegaly with pulmonary vascular congestion I reviewed and agree. proBNP is elevated 28,600. Patient currently on IV Lasix for milligram twice daily as well as heparin drip. Also patient received Levaquin and will continue on same dose 75 mg every 48 hours She is currently on IV Lasix 40 mg twice daily heparin drip and Levaquin and aspirin Subjective: Patient seen at bedside. No significant overnight events. Patient states she believes her breathing is slightly improved from yesterday, otherwise no other complaints concerns at this time. Pertinent positives and negatives discussed above, a complete review of systems was preformed and all the other sytems were negative. Vitals Signs Reveiwed. General: non toxic, no distress Head: atraumatic, normocephalic, symmetric Eyes: EOMI, no lid lag, anicteric sclera, pupils equal round reactive to light ENT: Nose and ears atraumatic Neck: No cervical lymphadenopathy, trachea midline, supple Mouth: no lip lesion, mucus membranes moist Cardiovascular: S1S2 reg, grade 3/6 systolic murmur, positive dorsalis pedis pulse bilateral, 1+ bilateral pitting edema Lungs: Decreased bilateral breath sounds with mild crackles and no use of accessory muscles noted Extremities: Cool lower extremities Abdominal: soft, nontender to palpation, no guarding Psych: Alert, oriented, appropriate affect Data Reveiwed Today: Patient Labs: WBC 12.63, hemoglobin 11.8, neutrophils 9.72, troponin 1.71, and procalcitonin 0.21. Imaging: Chest x-ray today showed worsening right upper lobe infiltrate Assesment and Plan: #Acute hypoxic respiratory failure likely secondary to CHF exacerbation versus pneumonia #Elevated troponin potentially secondary to above - Continue IV Lasix 40 mg IV twice daily - Heparin drip - Continue home cardiac medications including Zetia 10 mg p.o. at bedtime, Imdur 30 mg p.o. daily, aspirin, atenolol 25 mg p.o. twice daily, and Lipitor 80 mg p.o. at bedtime -Levaquin discontinued, procalcitonin 0.21 suspicion very low at this time for pneumonia - Cardiology on consult appreciate further recommendations - Plan for echo today, and if kidney function stays within normal limits patient can go for left heart cath tomorrow - Sputum culture obtained - Wean oxygen as tolerated - Cardiac telemetry - Prednisone 5 mg daily - Daily weights - Fluid restrict to 2 L - Heart healthy diet, n.p.o. after midnight for potential cath tomorrow Chronic #Hyperlipidemia: - Continue home atorvastatin 80 mg p.o. at bedtime #Hypertension: - Continue home atenolol 25 mg p.o. twice daily F none E potassium 10 mill equivalents p.o. daily N heart healthy diet A as tolerated DVT ppx: Heparin drip GI ppx: Protonix 40 mg IVP daily Code Status: No code Anticipated discharge place: Pending clinical course Anticipated discharge time: Pending clinical course Objective - Vital Signs Vital signs: Vital Signs Temp 98.3 F 04/25/25 04:00 Pulse 75 04/25/25 04:00 Resp 32 H 04/25/25 04:00 BP 125/66 04/25/25 04:00 Pulse Ox 97 04/25/25 04:00 FiO2 Intake & Output 04/24/25 04/25/25 04/25/25 18:59 06:59 18:59 Intake Total 658 Output Total 550 880 Balance 108 -880 Weight 72.575 kg 73.5 kg Intake: Oral 658 Output: Urine 550 880 Other: Voiding Method Bedside Commode Bedside Commode - Labs CBC & Chem 7: 04/29/25 07:27 04/29/25 07:27 Labs: Abnormal Lab Results - Last 24 Hours (Table) 04/24/25 04/24/25 04/24/25 Range/Units 07:32 07:32 14:50 WBC (4.50-10.00) 10*3/uL RBC (4.10-5.20) 10*6/uL Hgb (12.0-15.0) g/dL Hct (37.2-46.3) % MCV (80.0-97.0) fL MCH (27.0-32.0) pg Immature Gran # (0.00-0.04) 10*3/uL Neutrophils # (1.80-7.70) 10*3/uL Monocytes # (0.20-1.00) 10*3/uL APTT (22.0-30.0) sec Chloride 108 H (98-107) mmol/L BUN 41 H (7-17) mg/dL Creatinine 1.36 H (0.52-1.04) mg/dL Glucose 161 H (74-99) mg/dL Total Bilirubin 1.4 H (0.2-1.3) mg/dL AST 52 H (14-36) U/L ALT 59 H (4-34) U/L Troponin I 1.310 H* 2.050 H* (0.000-0.034) ng/mL Total Protein 6.0 L (6.3-8.2) g/dL 04/24/25 04/25/25 04/25/25 Range/Units 17:35 06:01 06:01 WBC 12.63 H (4.50-10.00) 10*3/uL RBC 3.68 L (4.10-5.20) 10*6/uL Hgb 11.8 L (12.0-15.0) g/dL Hct 36.7 L (37.2-46.3) % MCV 99.7 H (80.0-97.0) fL MCH 32.1 H (27.0-32.0) pg Immature Gran # 0.05 H (0.00-0.04) 10*3/uL Neutrophils # 9.72 H (1.80-7.70) 10*3/uL Monocytes # 1.37 H (0.20-1.00) 10*3/uL APTT 51.4 H 45.1 H (22.0-30.0) sec Chloride (98-107) mmol/L BUN (7-17) mg/dL Creatinine (0.52-1.04) mg/dL Glucose (74-99) mg/dL Total Bilirubin (0.2-1.3) mg/dL AST (14-36) U/L ALT (4-34) U/L Troponin I (0.000-0.034) ng/mL Total Protein (6.3-8.2) g/dL Assessment and Plan Assessment: Attestation Attestation/ Auto Crane Driver Note: Attestation to Progress Note, Participation (I saw and evaluated the patient with the Resident, and I reviewed and discussed the patient with the Resident and agree with the Resident's findings and plans as documented above., management reviewed and discussed), I agree with findings & plan, Provider Signature (JOSHUA FANG, ZENAIDA Hawthorne Time with Patient: Greater than 30
--- NOTE | 2025-04-25 22:23 | P.CONS ---
History of Present Illness - Reason for Consult Consult date: 04/25/25 Fever Requesting physician: Mikie E Sheet - Chief Complaint Shortness of breath and cough x few days - History of Present Illness Patient is a 84-year-old female with a past medical history significant forCoronary Artery Disease (CAD), Heart Failure, Hyperlipidemia, Hypertension, Rheumatoid Arthritis (RA) was brought into the hospital for evaluation of increasing shortness of breath that have been has been getting worse for the last few days and the patient also complaining of increasing swelling to her left lower extremity recently did have a discontinuation of her triamterene hydrochlorothiazide by her building and grounds supervisor because of the kidney issue patient presenting with increasing shortness of breath patient also have a cough mild to moderate intensity but unable to bring up any sputum patient denies high-grade fever however did have a low-grade fever of 100 F on presentation to the hospital that subsequently resolved patient was not tachycardic or hypotensive mildly hypoxic currently on 3 L nasal cannula oxygen patient did have elevated white count 16.61 with a left shift BUN and creatinine are mildly elevated troponin was elevated liver enzymes are elevated influenza RSV COVID testing negative patient did have a chest x-ray concerning for CHF with repeat chest x-ray this morning also mention right upper lobe infiltrate findings may be worsening concerning for possible pneumonia patient did have multiple antibiotic allergies she was started on Levaquin infectious disease was consulted regarding fever Review of Systems Positive point and negatives has been mentioned in the HPI, complete review of systems was performed and all other systems are negative Past Medical History Past Medical History: Coronary Artery Disease (CAD), Heart Failure, Hyperlipidemia, Hypertension, Rheumatoid Arthritis (RA) Additional Past Medical History / Comment(s): POLYMYALGIARHEAMATICA, ROSACEA History of Any Multi-Drug Resistant Organisms: None Reported Past Surgical History: Coronary Bypass/CABG, Heart Catheterization Additional Past Surgical History / Comment(s): CABG X3 in 2008, 2 HEART CATHS, LEFT CAROTID ENDARTECTOMY, ABIEL CATARACT, CRISTOBAL 05/06/15 TAVR 10 years ago. cataract sx. Past Anesthesia/Blood Transfusion Reactions: No Reported Reaction Past Psychological History: No Psychological Hx Reported Smoking Status: Never smoker Past Alcohol Use History: None Reported Past Drug Use History: None Reported - Past Family History Mother Family Medical History: Hypertension Medications and Allergies Home Medications Medication Instructions Recorded Confirmed Type Atorvastatin [Lipitor] 80 mg PO HS 05/01/15 04/24/25 History Ezetimibe [Zetia] 10 mg PO HS 05/01/15 04/24/25 History atenoloL [Tenormin] 25 mg PO BID 05/01/15 04/24/25 History predniSONE 5 mg PO DAILY 05/01/15 04/24/25 History Cholecalciferol [Vitamin D3 (25 50 mcg PO HS 05/24/15 04/24/25 History Mcg = 1000 Iu)] Aspirin EC [Ecotrin Low Dose] 81 mg PO DAILY 04/24/25 04/24/25 History Azelaic Acid 1 applic TOPICAL DAILY PRN 04/24/25 04/24/25 History Carboxymethylcellulose Sodium 1 drop BOTH EYES QID PRN 04/24/25 04/24/25 History [Refresh Tears] Denosumab [Prolia] 60 mg SQ Q180D 04/24/25 04/24/25 History Furosemide [Lasix] 20 mg PO DAILY 04/24/25 04/24/25 History Glucosam/Deny-Msm1/C/Dennis/Bosw 2 tab PO HS 04/24/25 04/24/25 History [Glucosamine-Chondroitin Tablet] Hydrocortisone Cream 1 applic TOPICAL DAILY PRN 04/24/25 04/24/25 History [Hydrocortisone 2.5% Cream] Isosorbide Mononitrate ER [Imdur] 30 mg PO DAILY 04/24/25 04/24/25 History Ketoconazole 2% Cream [Nizoral 2%] 1 applic TOPICAL BID PRN 04/24/25 04/24/25 History Potassium Chloride 10 meq PO DAILY 04/24/25 04/24/25 History clindamycin HCL [Cleocin] 600 mg PO ONCE PRN 04/24/25 04/24/25 History lisinopriL [Zestril] 10 mg PO DAILY 04/24/25 04/24/25 History metroNIDAZOLE 0.75% CREAM 1 applic TOPICAL DAILY 04/24/25 04/24/25 History [Metrocream 0.75%] Allergies Allergy/AdvReac Type Severity Reaction Status Date / Time cephalexin monohydrate Allergy Rash/Hives Verified 04/24/25 12:17 [From Keflex] clarithromycin [From Biaxin] Allergy Rash/Hives Verified 04/24/25 12:17 clonidine Allergy Dyspnea/Water Verified 04/24/25 12:17 retention hydralazine HCl Allergy Rash/Hives/Increased Verified 04/24/25 12:17 [From Apresoline] BP amlodipine besylate AdvReac pedal edema Verified 04/24/25 12:17 [From Norvasc] sulfamethoxazole AdvReac stomach Verified 04/24/25 12:17 [From Bactrim] upset trimethoprim [From Bactrim] AdvReac stomach Verified 04/24/25 12:17 upset Physical Exam Vitals: Vital Signs Temp Pulse Resp BP BP Pulse Ox 04/25/25 08:00 98 F 68 28 H 159/69 100 04/25/25 04:00 98.3 F 75 32 H 125/66 97 04/25/25 00:00 98.6 F 71 32 H 111/56 97 04/24/25 19:56 98.9 F 77 20 123/68 97 04/24/25 17:04 98.1 F 78 22 120/69 98 04/24/25 16:23 97 04/24/25 12:59 98.0 F 04/24/25 12:49 69 16 128/54 Intake and Output 04/24/25 04/25/25 04/25/25 22:59 06:59 14:59 Intake Total 300 Output Total 630 800 400 Balance -630 -800 -100 Intake: Oral 300 Output: Urine 630 800 400 Other: Voiding Method Bedside Commode Bedside Commode Weight 73.5 kg GENERAL DESCRIPTION: Elderly male up in the chair, no distress. No tachypnea or accessory muscle of respiration use. HEENT: Shows Pallor , no scleral icterus. Oral mucous membrane is dry. NECK: Trachea central, no thyromegaly. LUNGS: Unlabored breathing. Decreased breath sound at the base HEART: S1, S2, regular rate and rhythm. No loud murmur ABDOMEN: Soft, no tenderness , guarding or rigidity, no organomegaly EXTREMITIES: 1+ edema of feet. SKIN: No rash, no masses palpable. NEUROLOGICAL: The patient is awake, alert, oriented x3, mood and affect normal. Results CBC & Chem 7: 04/25/25 06:01 04/24/25 07:32 Labs: Abnormal Lab Results - Last 24 Hours (Table) 07/23/25 07/23/25 07/24/25 Range/Units 14:50 17:35 06:01 WBC (4.50-10.00) 10*3/uL RBC (4.10-5.20) 10*6/uL Hgb (12.0-15.0) g/dL Hct (37.2-46.3) % MCV (80.0-97.0) fL MCH (27.0-32.0) pg Immature Gran # (0.00-0.04) 10*3/uL Neutrophils # (1.80-7.70) 10*3/uL Monocytes # (0.20-1.00) 10*3/uL APTT 51.4 H 45.1 H (22.0-30.0) sec Troponin I 2.050 H* (0.000-0.034) ng/mL 04/25/25 04/25/25 Range/Units 06:01 09:24 WBC 12.63 H (4.50-10.00) 10*3/uL RBC 3.68 L (4.10-5.20) 10*6/uL Hgb 11.8 L (12.0-15.0) g/dL Hct 36.7 L (37.2-46.3) % MCV 99.7 H (80.0-97.0) fL MCH 32.1 H (27.0-32.0) pg Immature Gran # 0.05 H (0.00-0.04) 10*3/uL Neutrophils # 9.72 H (1.80-7.70) 10*3/uL Monocytes # 1.37 H (0.20-1.00) 10*3/uL APTT (22.0-30.0) sec Troponin I 1.710 H* (0.000-0.034) ng/mL Assessment and Plan (1) Fever Current Visit: Yes Status: Acute Code(s): R50.9 - FEVER, UNSPECIFIED SNOMED Code(s): 133745862 (2) Pneumonia Current Visit: Yes Status: Acute Code(s): J18.9 - PNEUMONIA, UNSPECIFIED ORGANISM SNOMED Code(s): 052788619 (3) Allergy to multiple antibiotics Current Visit: Yes Status: Acute Code(s): Z88.1 - ALLERGY STATUS TO OTHER ANTIBIOTIC AGENTS SNOMED Code(s): 831108211 Plan: 1patient presented hospital with increasing shortness of breath which is likely multifactorial keeping in mind her swelling lower extremity and likely suspicious for CHF exacerbation however the patient also have a cough congested cough and elevated white count pointing towards possible component of pneumonia as well although the procalcitonin is normal not 100% marker for ruling out pneumonia 2-patient with multiple antibiotic ALLERGIES that would limit the number of antibiotic safe to use 3-sputum culture have been requested 4-patient to be treated with Levaquin while waiting for the culture to finalize Daughter at the bedside question answered We will follow on clinical condition and cultures to further adjust medication if needed Thank you for this consultation we will follow the patient along with you Dictation was produced using [employer] dictation software. please excuse any grammatical, word or spelling errors. Time with Patient: Greater than 30
[2025-04-26] MEDS: ASPIRIN 81 MG PO SCH (06:11)
[2025-04-26] MEDS: LEVOFLOXACIN 500 MG TAB PO SCH (06:13)
[2025-04-26 07:15] LABS: Basophils # (A) 0.03 10*3/uL (0.00-0.10); Basophils % (A) 0.2 %; Eosinophils # (A) 0.27 10*3/uL (0.04-0.35); Eosinophils % (A) 2.0 %; HCT 36.3 % (37.2-46.3); HGB 11.7 g/dL (12.0-15.0); Lymphocytes # (A) 1.39 10*3/uL (0.90-5.00); Lymphocytes % (A) 10.2 %; MCH 32.0 pg (27.0-32.0); MCHC 32.2 g/dL (32.0-37.0); MCV 99.2 fL (80.0-97.0); Monocytes # (A) 1.23 10*3/uL (0.20-1.00); Monocytes % (A) 9.0 %; Neutrophils # (A) 10.72 10*3/uL (1.80-7.70); Neutrophils % (A) 78.2 %; Platelet Count 194 10*3/uL (140-440); RBC 3.66 10*6/uL (4.10-5.20); RDW 13.2 % (11.5-14.5); WBC 13.69 10*3/uL (4.50-10.00)
[2025-04-26 07:48] LABS: African American GFR (CKD) 36 (>60 ml/min/1.73 sqM); Anion Gap 11 mmol/L; Blood Urea Nitrogen 53 mg/dL (7-17); Calcium 8.7 mg/dL (8.4-10.2); Carbon Dioxide 26 mmol/L (22-30); Chloride 100 mmol/L (98-107); Glucose 148 mg/dL (74-99); Non-African American GFR(CKD) 31 (>60 ml/min/1.73 sqM); Potassium 3.8 mmol/L (3.5-5.1); Sodium 137 mmol/L (137-145)
[2025-04-26] MEDS ORDERED: NITROGLYCERIN SL TABS 0.4 MG TAB SUBLINGUAL PRN (08:05)
[2025-04-26] MEDS ORDERED: LEVOFLOXACIN 500MG-D5W PMX 500 MG in DEXTROSE/WATER 1 100ML.BAG IVPB SCH (09:00)
[2025-04-26] MEDS: ATORVASTATIN 80 MG TAB PO STA (09:12)
[2025-04-26] MEDS: SODIUM CHLORIDE 0.9% 1,000 ML in EMPTY BAG 1 BAG IV SCH (09:12)
[2025-04-26] MEDS: ASPIRIN 325 MG TAB PO STA (09:12)
--- NOTE | 2025-04-26 09:47 | P.PN ---
Subjective Progress Note Date: 04/26/25 Patient is a 84-year-old female with history of coronary disease status post CABG in 2008 and severe aortic stenosis status post TAVR in 2014, CKD stage IIIb, hypertension, hyperlipidemia, type 2 diabetes mellitus came to the ER yesterday with complaints of worsening shortness of breath on exertion associ ated with worsening bilateral leg edema since 3 to 4 days. Also endorses orthopnea and PND. Her primary gravel screener is Dr. Melvin who she saw last week on Tuesday who discontinued her triamterene/hydrochlorothiazide for worsening kidney function and also prescribed Imdur since she was complaining of pain and discomfort in her neck, ears and jaw last week. Patient denies chest pain, lightheadedness, acute vision changes. She is compliant with her medications and eats low-salt diet. She is taking prednisone for history of polymyalgia rheumatica. Denies any history of DVT or pulm embolism. Most recent echocardiogram was April 2024 with LVEF of 60 to 65% At the time of the interview, patient continues to be on 3 L of supplemental oxygen via nasal cannula however feels less short of breath and her leg edema has improved as well. She continues to deny chest pain. She is currently on IV Lasix. Labs and images on admission: WBC 16.61 improved to 12.63 today, hemoglobin 11.8, sodium 140, potassium 4.2, BUN 41, creatinine 1.36, EGFR 36, total bili 1.4, AST 52, ALT 59, NT proBNP 86895, troponin I 1.3, 2.050 Chest x-ray on 04/24/2025 shows pulmonary vascular congestion EKG ST segment depression in lead II lead I, aVL, V4, V5, V6 and first-degree AV block. 04/26/2025: Patient seen and examined at the bedside. No acute events overnight. Patient reports that her shortness of breath has improved compared to yesterday. She is currently saturating at 95% on room air. Patient reports no chest pain, palpitation or lightheadedness. However she continues to feel weak and tired. Patient is being kept n.p.o. in anticipation for cardiac cath which is scheduled at noon today. Lab garcía her BUN is 53 and creatinine is 1.52 which is slightly elevated compared to yesterday. Urine output is 2.6 L in 24 hours with negative balance of 2.1 L. Echocardiogram reveals LVEF of 40-45% with moderate to severe pulmonary hypertension with RVSP estimated at 54 mmHg. Moderate to severe MR. TAVR valve in place with concerns for severe stenosis. Moderate AR. Physical examination: Vital signs reviewed General: non toxic, no distress Head: atraumatic, normocephalic, symmetric Eyes: EOMI, no lid lag, anicteric sclera, pupils equal round reactive to light ENT: Nose and ears atraumatic Neck: No cervical lymphadenopathy, trachea midline, supple Mouth: no lip lesion, mucus membranes moist Cardiovascular: S1S2 reg, grade 3/6 systolic murmur, positive dorsalis pedis p ulse bilateral, trace bilateral pedal edema Lungs: Decreased bilateral breath sounds with mild crackles and no use of accessory muscles noted MSK/Derm: no cyanosis Abdominal: soft, nontender to palpation, no guarding Psych: Alert, oriented, appropriate affect Assessment: #NSTEMI #Acute on chronic congestive heart failure exacerbation #Severe aortic stenosis #JOE on CKD stage IIIb #History of CAD status post CABG #History of severe aortic stenosis status post TAVR #Leukocytosis likely reactive Plan: Left heart catheterization today Continue with heparin drip Aspirin 81 mg OD, Lipitor 80 mg p.o., atenolol 25 mg p.o. twice daily Switch IV Lasix to oral 40 mg twice daily Strict I's and O's, daily weight, fluid restriction to 1.5 L/day Continue with oxygen supplement therapy Continue monitor electrolytes and urine output BMP tomorrow a.m. Objective - Vital Signs Vital signs: Vital Signs Temp 98.0 F 04/26/25 08:45 Pulse 69 04/26/25 08:45 Resp 20 04/26/25 08:45 BP 135/62 04/26/25 08:45 Pulse Ox 95 04/26/25 08:45 FiO2 Intake & Output 04/25/25 04/26/25 04/26/25 18:59 06:59 18:59 Intake Total 532.966 Output Total 1850 800 Balance -1317.034 -800 Weight 69.2 kg Intake: Intake, IV Titration 232.966 Amount Heparin Sod,Pork in 0.45% 232.966 NaCl 25,000 unit In 0.45 % NaCl 1 250ml.bag @ 12 UNITS/KG/HR 8.709 mls/hr IV .Q24H [facility] Rx#: [id number] Oral 300 Output: Urine 1850 800 Other: Voiding Method External Catheter External Catheter - Labs CBC & Chem 7: 04/26/25 06:50 04/26/25 06:50 Labs: Abnormal Lab Results - Last 24 Hours (Table) 04/25/25 04/26/25 04/26/25 Range/Units 09:24 06:50 06:50 WBC 13.69 H (4.50-10.00) 10*3/uL RBC 3.66 L (4.10-5.20) 10*6/uL Hgb 11.7 L (12.0-15.0) g/dL Hct 36.3 L (37.2-46.3) % MCV 99.2 H (80.0-97.0) fL Immature Gran # 0.05 H (0.00-0.04) 10*3/uL Neutrophils # 10.72 H (1.80-7.70) 10*3/uL Monocytes # 1.23 H (0.20-1.00) 10*3/uL BUN 53 H (7-17) mg/dL Creatinine 1.52 H (0.52-1.04) mg/dL Glucose 148 H (74-99) mg/dL Troponin I 1.710 H* (0.000-0.034) ng/mL
[2025-04-26] MEDS: IV FLUID CONTINUATION 900 ML IV ONE (13:36)
[2025-04-26] MEDS: fentaNYL (PF) 50 MCG/1 ML VIAL IVP ONE (13:36)
[2025-04-26] MEDS: MIDAZOLAM 2 MG/2 ML VIAL IVP ONE ×2 (13:36)
[2025-04-26] MEDS: LIDOCAINE 1% INJ 10MG/ML (20 ML MDV) SQ ONE (13:48)
[2025-04-26] MEDS: VERAPAMIL SYRINGE (5 MG/10 ML) INTRAARTER ONE (13:48)
[2025-04-26] MEDS: HEPARIN SODIUM 1,000 UN/ML (10ML VL) IVP ONE ×2 (13:53→14:35)
[2025-04-26] MEDS ORDERED: HEPARIN SODIUM,PORCINE/D5W 25,000 UNIT in EMPTY BAG 1 BAG IV SCH (14:00)
[2025-04-26] MEDS: IOPAMIDOL-300 100ML BTL INJ ONE (15:34)
--- NOTE | 2025-04-26 15:36 | P.PN ---
Subjective Progress Note Date: 04/26/25 This is a pleasant 84 years old female with past medical history of multiple medical problems: Coronary artery disease with no history of lung disease. She does not use oxygen at home Presents because of shortness of breath that has been going on on and off for 2 weeks associate with exertional dyspnea but yesterday got really worse she has to come to emergency room although she does not have any chest pain no cough or phlegm. Little headache but no overt dizziness or weakness or numbness in the extr emities. No specific GI surgery or symptom. 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 Melvin Exam she has bilateral basal crepitation and 2-3+ bilateral pitting leg edema She has been afebrile blood pressure stable. Mildly tachypneic in the mid to low 20s. Saturating 97% on 3 L oxygen via nasal cannula. She has low-grade fever about 1 drink Troponin is 1.3, chronically elevated but not to this level EKG showing sinus rhythm at [address] depression in V4-V6 and aVL. Chest x-ray showing cardiomegaly with pulmonary vascular congestion I reviewed and agree. proBNP is elevated 28,600. Patient currently on IV Lasix for milligram twice daily as well as heparin drip. Also patient received Levaquin and will continue on same dose 75 mg every 48 hours She is currently on IV Lasix 40 mg twice daily heparin drip and Levaquin and aspirin Subjective: 04/25/2025: Patient seen at bedside. No significant overnight events. Patient states she believes her breathing is slightly improved from yesterday, otherwise no other complaints concerns at this time. 04/26/2025: Patient seen at bedside. No significant overnight events. States her breathing remains around the same, not as bad as when she initially arrived on admission. Reports she is hoping that she is able to get the cardiac catheterization done today. Patient has no other complaints concerns at this time. Pertinent positives and negatives discussed above, a complete review of systems was preformed and all the other sytems were negative. Vitals Signs Reveiwed. General: non toxic, no distress Head: atraumatic, normocephalic, symmetric Eyes: EOMI, no lid lag, anicteric sclera, pupils equal round reactive to light ENT: Nose and ears atraumatic Neck: No cervical lymphadenopathy, trachea midline, supple Mouth: no lip lesion, mucus membranes moist Cardiovascular: S1S2 reg, grade 3/6 systolic murmur, positive dorsalis pedis pulse bilateral, 1+ bilateral pitting edema Lungs: Decreased bilateral breath sounds with mild crackles and no use of accessory muscles noted Extremities: Cool lower extremities Abdominal: soft, nontender to palpation, no guarding Psych: Alert, oriented, appropriate affect Data Reveiwed Today: Patient Labs: WBC 13.69, hemoglobin 11.7, platelets 194, neutrophils 2.72, sodium 137, Tessman 3.8, BUN 53, creatinine 1.52, glucose 148, and calcium 8.7. Imaging: No new imaging Assesment and Plan: #Acute hypoxic respiratory failure likely secondary to CHF exacerbation versus pneumonia #Elevated troponin potentially secondary to above #History of CAD status post CABG #History of severe aortic stenosis status post TAVR - Going for cardiac cath today (04/26) - Switched IV Lasix to p.o. 40 mg twice daily - Heparin drip - Continue home cardiac medications including Zetia 10 mg p.o. at bedtime, Imdur 30 mg p.o. daily, aspirin, atenolol 25 mg p.o. twice daily, and Lipitor 80 mg p.o. at bedtime - Levaquin restarted today by ID, 250 mg p.o. daily - Cardiology on consult appreciate further recommendations - ID on consult, appreciate further recommendation - Plan for echo today, and if kidney function stays within normal limits patient can go for left heart cath tomorrow - Sputum culture obtained - Wean oxygen as tolerated - Cardiac telemetry - Prednisone 5 mg daily - Daily weights - Fluid restrict to 1.5 L #CKD stage IIIb: - Creatinine has remained around baseline, is determined patient would be able to tolerate contrast from heart catheterization today - Continue to monitor BMP - Switched IV Lasix to p.o. Chronic #Hyperlipidemia: - Continue home atorvastatin 80 mg p.o. at bedtime #Hypertension: - Continue home atenolol 25 mg p.o. twice daily F none E potassium 10 mill equivalents p.o. daily N heart healthy diet A as tolerated DVT ppx: Heparin drip GI ppx: Protonix 40 mg IVP daily Code Status: No code Anticipated discharge place: Pending clinical course Anticipated discharge time: Pending clinical course Objective - Vital Signs Vital signs: Vital Signs Temp 98.0 F 04/26/25 11:47 Pulse 73 04/26/25 14:20 Resp 19 04/26/25 14:20 BP 144/57 04/26/25 11:47 Pulse Ox 96 04/26/25 11:47 FiO2 Intake & Output 04/25/25 04/26/25 04/26/25 18:59 06:59 18:59 Intake Total 532.966 299.13 Output Total 1850 800 Balance -1317.034 -800 299.13 Weight 69.2 kg Intake: Intake, IV Titration 232.966 249.13 Amount Heparin Sod,Pork in 0.45% 232.966 189.13 NaCl 25,000 unit In 0.45 % NaCl 1 250ml.bag @ 12 UNITS/KG/HR 8.709 mls/hr IV .Q24H [facility] Rx#: [id number] Sodium Chloride 0.9% 1, 60 000 ml In Empty Bag 1 bag @ 1 ML/KG/HR 69.2 mls/hr IV .[id number] [facility] Rx#: [id number] Oral 300 50 Output: Urine 1850 800 Other: Voiding Method External Catheter External Catheter External Catheter - Labs CBC & Chem 7: 04/29/25 07:27 04/29/25 07:27 Labs: Abnormal Lab Results - Last 24 Hours (Table) 04/26/25 04/26/25 Range/Units 06:50 06:50 WBC 13.69 H (4.50-10.00) 10*3/uL RBC 3.66 L (4.10-5.20) 10*6/uL Hgb 11.7 L (12.0-15.0) g/dL Hct 36.3 L (37.2-46.3) % MCV 99.2 H (80.0-97.0) fL Immature Gran # 0.05 H (0.00-0.04) 10*3/uL Neutrophils # 10.72 H (1.80-7.70) 10*3/uL Monocytes # 1.23 H (0.20-1.00) 10*3/uL BUN 53 H (7-17) mg/dL Creatinine 1.52 H (0.52-1.04) mg/dL Glucose 148 H (74-99) mg/dL Assessment and Plan Assessment: Attestation Attestation/ County Demonstrator Note: Attestation to Progress Note, Participation (I saw and evaluated the patient with the Resident, and I reviewed and discussed the patient with the Resident and agree with the Resident's findings and plans as documented above., management reviewed and discussed), I agree with findings & plan, Provider Signature (JOSHUA FANG, ZENAIDA Hawthorne Time with Patient: Greater than 30
--- NOTE | 2025-04-26 15:49 | CDI ---
Documentation Clarification Form Date: 04/26/2025 02:47:27 PM From: Babita Sheehan RN, CCDS Phone: [phone] Admit Date: 04/24/2025 09:24:00 AM Patient Name: Danisha Cody Visit Number: [id number] Discharge Date: ATTENTION: The Clinical Documentation Specialists (CDI) and [facility] Coding Staff appreciate your assistance in clarifying documentation. Please respond to the clarification below the line at the bottom and electronically sign. The CDI & [facility] Coding staff will review the response and follow-up if needed. Please note: Queries are made part of the Legal Health Record. If you have any questions, please contact the author of this message via ITS. Doctor. Charles Aldridge Your patient has the documented acute on chronic congestive heart failure exacerbation in the Cardiology Consult and subsequent progress notes. Additional information regarding the type, of CHF is requested. History/Risk Factors: Coronary Artery Disease (CAD), Hyperlipidemia, Hypertension, Rheumatoid Arthritis Clinical Indicators: 84-year-old female to ER with shortness of breath, worsening bilateral led edema for 3to 4 days 04/24 VS/Pulse OX: (07:11) 179/69 84 40 100 98% 4/L BNP: 27161 04/25 Echocardiogram Results: Left ventricular ejection fraction is estimated at 40-45 %.with moderate to severe pulmonary hypertension with RVSP estimated at 54 mmHg. 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 [X ] Acute on Chronic Systolic Heart Failure (reduced EF) [ ] Acute on Chronic Diastolic Heart Failure (preserved EF) [ ] Acute on Chronic Heart Failure Systolic & Diastolic Heart Failure [ ] Other, please specify [ ] Unable to determine (Template Last Revised: November 2020) MTDD
[2025-04-26] MEDS: IOPAMIDOL-370 100ML BTL INJ ONE (15:57)
[2025-04-26] MEDS: FUROSEMIDE 40 MG TAB PO SCH (17:19)
[2025-04-27] MEDS: ALPRAZolam 0.25 MG TAB PO PRN (03:35)
[2025-04-27] MEDS ORDERED: HEPARIN SODIUM,PORCINE 10,000 UNIT in SODIUM CHLORIDE 0.9% 1,000 ML IRRIGATION PRN (07:00)
[2025-04-27] MEDS ORDERED: HEPARIN SODIUM,PORCINE (1 ML) 2,500 UNIT in SODIUM CHLORIDE 0.9% 250 ML IRRIGATION PRN (07:00)
[2025-04-27 07:10] LABS: Basophils # (A) 0.03 10*3/uL (0.00-0.10); Basophils % (A) 0.2 %; Eosinophils # (A) 0.09 10*3/uL (0.04-0.35); Eosinophils % (A) 0.7 %; HCT 33.2 % (37.2-46.3); HGB 10.8 g/dL (12.0-15.0); Lymphocytes # (A) 1.01 10*3/uL (0.90-5.00); Lymphocytes % (A) 8.3 %; MCH 32.1 pg (27.0-32.0); MCHC 32.5 g/dL (32.0-37.0); MCV 98.8 fL (80.0-97.0); Monocytes # (A) 1.06 10*3/uL (0.20-1.00); Monocytes % (A) 8.7 %; Neutrophils # (A) 9.97 10*3/uL (1.80-7.70); Neutrophils % (A) 81.6 %; Platelet Count 214 10*3/uL (140-440); RBC 3.36 10*6/uL (4.10-5.20); RDW 13.4 % (11.5-14.5); WBC 12.22 10*3/uL (4.50-10.00)
[2025-04-27 07:16] LABS: African American GFR (CKD) 34 (>60 ml/min/1.73 sqM); Anion Gap 10 mmol/L; Blood Urea Nitrogen 49 mg/dL (7-17); Calcium 8.5 mg/dL (8.4-10.2); Carbon Dioxide 21 mmol/L (22-30); Chloride 107 mmol/L (98-107); Glucose 194 mg/dL (74-99); Non-African American GFR(CKD) 30 (>60 ml/min/1.73 sqM); Potassium 4.2 mmol/L (3.5-5.1); Sodium 138 mmol/L (137-145)
[2025-04-27] MEDS: LEVOFLOXACIN 250 MG TAB PO SCH (09:56)
[2025-04-27] MEDS: LOSARTAN 25 MG TAB PO SCH (11:45)
--- NOTE | 2025-04-27 12:16 | XR ---
EXAMINATION TYPE: XR chest 2V DATE OF EXAM: 04/27/2025 12:03 PM COMPARISON: 04/25/2025 CLINICAL INDICATION: Female, 84 years old with history of SOB, CHF: Shortness of breath TECHNIQUE: XR chest 2V views of the chest are obtained. FINDINGS: Scattered senescent parenchymal changes noted. Hyperinflation compatible with COPD. Increasing right perihilar and right suprahilar infiltrate. Correlate for pneumonia. Follow-up until resolution recommended. I suspect small effusions as well. Heart size is stable. Mediastinal structures are stable and grossly unremarkable. No evidence for hilar prominence. Degenerative changes dorsal spine. IMPRESSION: 1. Increasing right perihilar and right suprahilar infiltrate. Correlate for pneumonia. Follow-up unt il resolution recommended. I suspect small effusions as well. [facility], , 04/27/2025 12:13 PM
--- NOTE | 2025-04-27 13:27 | P.PN ---
Subjective Progress Note Date: 04/27/25 This is a pleasant 84 years old female with past medical history of multiple medical problems: Coronary artery disease with no history of lung disease. She does not use oxygen at home Presents because of shortness of breath that has been going on on and off for 2 weeks associate with exertional dyspnea but yesterday got really worse she has to come to emergency room although she does not have any chest pain no cough or phlegm. Little headache but no overt dizziness or weakness or numbness in the extr emities. No specific GI surgery or symptom. She is complaining from neck pain and ear pain whenever she have this shortness of breath on exertion which is retrieved once she sits down for about 15 minutes indicating it might be an anginal pain She is breathing better than since she came in Also patient had many small bowel movement Her scarfer operator Dr. Melvin Exam she has bilateral basal crepitation and 2-3+ bilateral pitting leg edema She has been afebrile blood pressure stable. Mildly tachypneic in the mid to low 20s. Saturating 97% on 3 L oxygen via nasal cannula. She has low-grade fever about 1 drink Troponin is 1.3, chronically elevated but not to this level EKG showing sinus rhythm at [address] depression in V4-V6 and aVL. Chest x-ray showing cardiomegaly with pulmonary vascular congestion I reviewed and agree. proBNP is elevated 28,600. Patient currently on IV Lasix for milligram twice daily as well as heparin drip. Also patient received Levaquin and will continue on same dose 75 mg every 48 hours She is currently on IV Lasix 40 mg twice daily heparin drip and Levaquin and aspirin Subjective: 04/25/2025: Patient seen at bedside. No significant overnight events. Patient states she believes her breathing is slightly improved from yesterday, otherwise no other complaints concerns at this time. 04/26/2025: Patient seen at bedside. No significant overnight events. States her breathing remains around the same, not as bad as when she initially arrived on admission. Reports she is hoping that she is able to get the cardiac catheterization done today. Patient has no other complaints concerns at this time. 04/27/2025: Patient seen at bedside. No significant overnight events. Reports her breathing has not improved and still has quite a bit of work with breathing. Patient is having shortness of breath with speaking eating and ambulating. No other complaints or concerns at this time. Pertinent positives and negatives discussed above, a complete review of systems was preformed and all the other sytems were negative. Vitals Signs Reveiwed. General: non toxic, no distress Head: atraumatic, normocephalic, symmetric Eyes: EOMI, no lid lag, anicteric sclera, pupils equal round reactive to light ENT: Nose and ears atraumatic Neck: No cervical lymphadenopathy, trachea midline, supple Mouth: no lip lesion, mucus membranes moist Cardiovascular: S1S2 reg, grade 3/6 systolic murmur, positive dorsalis pedis pulse bilateral, 1+ bilateral pitting edema Lungs: Decreased bilateral breath sounds with mild crackles and no use of accessory muscles noted Extremities: Cool lower extremities Abdominal: soft, nontender to palpation, no guarding Psych: Alert, oriented, appropriate affect Data Reveiwed Today: Patient Labs: WBC 12.22, hemoglobin 10.8, platelets 214, neutrophils 9.97, sodium 138, potassium 4.2, bicarb 21, BUN 49, creatinine 1.57, and glucose 194. Imaging: Chest x-ray showed Increasing right perihilar and right suprahilar infiltrate Assesment and Plan: #Acute hypoxic respiratory failure likely secondary to CHF exacerbation versus pneumonia #Elevated troponin potentially secondary to above #History of CAD status post CABG #History of severe aortic stenosis status post TAVR - Cardiac catheterization performed yesterday, official report not yet received but after speaking with cardiology SHAREPOINT DEVELOPER it showed significant aortic stenosis and regurg indicating a need for balloon valvuloplasty - Balloon valvuloplasty planned for Sunday 04/[address] Tam will discuss procedure with the patient tomorrow (04/28) - P.o. Lasix 40 mg twice daily - Heparin drip - Continue home cardiac medications including Zetia 10 mg p.o. at bedtime, Imdur 30 mg p.o. daily, aspirin, atenolol 25 mg p.o. twice daily, and Lipitor 80 mg p.o. at bedtime - Levaquin restarted today by ID, 250 mg p.o. daily - Cardiology on consult appreciate further recommendations - ID on consult, appreciate further recommendation - Plan for echo today, and if kidney function stays within normal limits patient can go for left heart cath tomorrow - Sputum culture ordered - Wean oxygen as tolerated - Cardiac telemetry - Prednisone 5 mg daily - Daily weights - Fluid restrict to 1.5 L #CKD stage IIIb: - Kidney function only slightly worsened after cardiac catheterization - Continue to monitor BMP - Switched IV Lasix to p.o. Chronic #Hyperlipidemia: - Continue home atorvastatin 80 mg p.o. at bedtime #Hypertension: - Continue home atenolol 25 mg p.o. twice daily F none E potassium 10 mill equivalents p.o. daily N heart healthy diet A as tolerated DVT ppx: Heparin drip GI ppx: Protonix 40 mg IVP daily Code Status: No code Anticipated discharge place: Pending clinical course Anticipated discharge time: Pending clinical course Objective - Vital Signs Vital signs: Vital Signs Temp 98.2 F 04/27/25 09:35 Pulse 66 04/27/25 11:38 Resp 18 04/27/25 11:38 BP 106/65 04/27/25 11:38 Pulse Ox 97 04/27/25 11:38 FiO2 Intake & Output 04/26/25 04/27/25 04/27/25 18:59 06:59 18:59 Intake Total 699.13 200 70 Output Total 500 350 Balance 199.13 -150 70 Weight 72.8 kg Intake: IV 400 10 Invasive Line 2 10 Intake, IV Titration 249.13 Amount Heparin Sod,Pork in 0.45% 189.13 NaCl 25,000 unit In 0.45 % NaCl 1 250ml.bag @ 12 UNITS/KG/HR 8.709 mls/hr IV .Q24H [facility] Rx#: [id number] Sodium Chloride 0.9% 1, 60 000 ml In Empty Bag 1 bag @ 1 ML/KG/HR 69.2 mls/hr IV .[id number] [facility] Rx#: [id number] Oral 50 200 60 Output: Urine 500 350 Other: Voiding Method External Catheter External Catheter External Catheter # Bowel Movements 1 - Labs CBC & Chem 7: 04/29/25 07:27 04/29/25 07:27 Labs: Abnormal Lab Results - Last 24 Hours (Table) 04/27/25 04/27/25 Range/Units 06:12 06:12 WBC 12.22 H (4.50-10.00) 10*3/uL RBC 3.36 L (4.10-5.20) 10*6/uL Hgb 10.8 L (12.0-15.0) g/dL Hct 33.2 L (37.2-46.3) % MCV 98.8 H (80.0-97.0) fL MCH 32.1 H (27.0-32.0) pg Immature Gran # 0.06 H (0.00-0.04) 10*3/uL Neutrophils # 9.97 H (1.80-7.70) 10*3/uL Monocytes # 1.06 H (0.20-1.00) 10*3/uL Carbon Dioxide 21 L (22-30) mmol/L BUN 49 H (7-17) mg/dL Creatinine 1.57 H (0.52-1.04) mg/dL Glucose 194 H (74-99) mg/dL Assessment and Plan Assessment: Attestation Attestation/ Photo Colorer Note: Attestation to Progress Note, Participation (I saw and evaluated the patient with the Resident, and I reviewed and discussed the patient with the Resident and agree with the Resident's findings and plans as documented above., management reviewed and discussed), I agree with findings & plan, Provider Signature (JOSHUA FANG, ZENAIDA Hawthorne Time with Patient: Greater than 30
--- NOTE | 2025-04-27 13:27 | P.PN ---
Subjective HISTORY OF PRESENT ILLNESS: Patient is a 84-year-old female with history of coronary disease status post CABG in 2008 and severe aortic stenosis status post TAVR in 2014, CKD stage IIIb, hypertension, hyperlipidemia, type 2 diabetes mellitus came to the ER yesterday with complaints of worsening shortness of breath on exertion associated with worsening bilateral leg edema since 3 to 4 days. Also endorses orthopnea and PND. Her primary spot cleaner is Dr. Melvin who she saw last week on Tuesday who discontinued her triamterene/hydrochlorothiazide for worsening kidney function and also prescribed Imdur since she was complaining of pain and discomfort in her neck, ears and jaw last week. Patient denies chest pain, lightheadedness, acute vision changes. She is compliant with her medications and eats low-salt diet. She is taking prednisone for history of polymyalgia rheumatica. Denies any history of DVT or pulm embolism. Most recent echocardiogram was April 2024 with LVEF of 60 to 65% At the time of the interview, patient continues to be on 3 L of supplemental oxygen via nasal cannula however feels less short of breath and her leg edema has improved as well. She continues to deny chest pain. She is currently on IV Lasix. Labs and images on admission: WBC 16.61 improved to 12.63 today, hemoglobin 11.8, sodium 140, potassium 4.2, BUN 41, creatinine 1.36, EGFR 36, total bili 1.4, AST 52, ALT 59, NT proBNP 08190, troponin I 1.3, 2.050 Chest x-ray on 04/24/2025 shows pulmonary vascular congestion EKG ST segment depression in lead II lead I, aVL, V4, V5, V6 and first-degree AV block. 04/26/2025: Patient seen and examined at the bedside. No acute events overnight. Patient reports that her shortness of breath has improved compared to yesterday. She is currently saturating at 95% on room air. Patient reports no chest pain, palpitation or lightheadedness. However she continues to feel weak and tired. Patient is being kept n.p.o. in anticipation for cardiac cath which is scheduled at noon today. Lab garcía her BUN is 53 and creatinine is 1.52 which is slightly elevated compared to yesterday. Urine output is 2.6 L in 24 hours with negative balance of 2.1 L. Echocardiogram reveals LVEF of 40-45% with moderate to severe pulmonary hypertension with RVSP estimated at 54 mmHg. Moderate to severe MR. TAVR valve in place with concerns for severe stenosis. Moderate AR. 04/27/2025 Patient is status post cardiac catheterization with Dr. Aldridge yesterday revealing 70% left main stenosis, 30 to 40% RCA stenosis, 70% left circumflex stenosis, 100% proximal LAD stenosis, 100% mid LAD stenosis. SMITH to LAD patent, SVG to OM patent, SVG to diagonal patent. LVEDP 25 mmHg. Patient examined this morning at bedside. Patient currently denies chest pain or pressure. She does report feeling congested and a little short of breath this morning. Vital signs are stable. Blood pressure 106/65. Heart rate is in the 70s. She is on room air with oxygen saturations greater than 92%. PHYSICAL EXAM: VITAL SIGNS: Reviewed. GENERAL: Well-developed in no acute distress. NECK: Supple. Positive JVD LUNGS: Respirations even and unlabored. Lungs with decreased air exchange bilaterally HEART: Regular rate and rhythm. S1 and S2 heard. S2 muffled. Systolic murmur noted at left sternal border. EXTREMITIES: Normal range of motion. No clubbing or cyanosis. Peripheral pulses intact. No lower extremity edema ASSESSMENT: #NSTEMI s/p cardiac catheterization as above, medical management recommended #Acute on chronic congestive heart failure exacerbation #Severe aortic stenosis #JOE on CKD stage IIIb #History of CAD status post CABG #History of severe aortic stenosis status post TAVR #Leukocytosis likely reactive PLAN: Obtain 2 view chest x-ray Increase oral Lasix to 60 mg twice a day Add low-dose losartan 12.5 mg daily Continue additional cardiac medications aspirin, atenolol, Lipitor, Zetia, and Imdur Patient will require eventual redo aortic valve replacement Patient will be scheduled to undergo aortic valve balloon valvuloplasty on Tuesday with Dr. Aldridge Further recommendations pending patient course Nurse practitioner note has been reviewed by physician. Signing provider agrees with the documented findings, assessment, and plan of care documented by CORRESPONDENCE SECTION SUPERVISOR as a scribe. Objective - Vital Signs Vital signs: Vital Signs Temp 98.2 F 04/27/25 09:35 Pulse 66 04/27/25 11:38 Resp 18 04/27/25 11:38 BP 106/65 04/27/25 11:38 Pulse Ox 97 04/27/25 11:38 FiO2 Intake & Output 04/26/25 04/27/25 04/27/25 18:59 06:59 18:59 Intake Total 699.13 200 70 Output Total 500 350 Balance 199.13 -150 70 Weight 72.8 kg Intake: IV 400 10 Invasive Line 2 10 Intake, IV Titration 249.13 Amount Heparin Sod,Pork in 0.45% 189.13 NaCl 25,000 unit In 0.45 % NaCl 1 250ml.bag @ 12 UNITS/KG/HR 8.709 mls/hr IV .Q24H [facility] Rx#: [id number] Sodium Chloride 0.9% 1, 60 000 ml In Empty Bag 1 bag @ 1 ML/KG/HR 69.2 mls/hr IV .[id number] [facility] Rx#: [id number] Oral 50 200 60 Output: Urine 500 350 Other: Voiding Method External Catheter External Catheter External Catheter # Bowel Movements 1 - Labs CBC & Chem 7: 04/27/25 06:12 04/27/25 06:12 Labs: Abnormal Lab Results - Last 24 Hours (Table) 04/27/25 04/27/25 Range/Units 06:12 06:12 WBC 12.22 H (4.50-10.00) 10*3/uL RBC 3.36 L (4.10-5.20) 10*6/uL Hgb 10.8 L (12.0-15.0) g/dL Hct 33.2 L (37.2-46.3) % MCV 98.8 H (80.0-97.0) fL MCH 32.1 H (27.0-32.0) pg Immature Gran # 0.06 H (0.00-0.04) 10*3/uL Neutrophils # 9.97 H (1.80-7.70) 10*3/uL Monocytes # 1.06 H (0.20-1.00) 10*3/uL Carbon Dioxide 21 L (22-30) mmol/L BUN 49 H (7-17) mg/dL Creatinine 1.57 H (0.52-1.04) mg/dL Glucose 194 H (74-99) mg/dL
--- NOTE | 2025-04-27 14:48 | P.CARDCATH ---
Description of Procedure: PROCEDURES PERFORMED: Left heart catheterization, bilateral coronary angiography, SVG to diagonal, SVG to OM, SMITH to LAD angiography ultrasound guided arterial access INDICATION: Non-STEMI CONSENT:I have discussed the risks, benefits and alternative therapies for the above-mentioned procedure and for both sedation/analgesia as well as necessary blood product administration, if indicated, as they pertain to this patient. The patient has indicated understanding and acceptance of the risks and procedures discussed. PROCEDURE: After the risks, benefits and alternatives of the above mentioned procedure explained in detail with the patient, informed consent was obtained. Patient was taken to the catheterization lab and prepped and draped in usual fashion. Ultrasound guidance was used to assess for arterial access. 1% lidocaine was used to anesthetize the right radial artery. A 6-Czech sheath was placed in the left radial artery using modified Seldinger technique and ultrasound guidance. Left coronary angiography was performed with a 5-Czech JL 3.5 catheter in a subselective manner secondary to difficulty engaging the left main. Limited images were obtained secondary to contrast threshold. SMITH to LAD angiography was performed with a 5 Czech FR4 catheter. There was significant difficulty engaging the grafts as well as the RCA from a left radial approach and therefore femoral access was obtained. A 6 Czech sheath was placed in the right femoral artery. SVG to OM and SVG to diagonal branch were obtained with a 6 Czech FR4 catheter. Multiple attempts at engaging the right coronary cusp were significantly difficult eventually requiring wiring with a 0.035 stiff glide and very anterior approach takeoff of the right coronary cusp and placement of a 6 Czech CLS 3.5 catheter however eventually able to take a subselective image which showed no significant stenosis with 20 to 30% stenosis of the RCA. At 1 point the 0.035 whisper wire was engaged in the RCA and images were obtained to evaluate the course of the RCA. A 5-Czech FR5 catheter was inserted into the left ventricle and pressure measurements were obtained. The right radial sheath was removed and a TR band was placed with hemostasis achieved. A right femoral angiogram showed adequate anatomy for closure with calcification inferior to the puncture site. The patient tolerated the procedure well. Patient was transported back to the post catheterization holding area in stable condition. Conscious Sedation: Patient was monitored under the direct supervision of myself for conscious sedation using Versed and fentanyl for a total duration of 113 minutes HEMODYNAMICS: Aorta: 120/40 LV: 167/7, LVEDP 25, mean gradient 42 mmHg across the valve SELECTIVE CORONARY ARTERIOGRAPHY: LEFT MAIN: The left main is a large caliber vessel which bifurcates into the LAD and circumflex. There is 95% left main stenosis LEFT ANTERIOR DESCENDING CORONARY ARTERY: LAD is a large caliber vessel which wraps around to the apex. There is 100% proximal LAD stenosis. LEFT CIRCUMFLEX CORONARY ARTERY: Left circumflex is a moderate caliber vessel with competitive flow to the circumflex and diffuse 70 to 80% stenosis. RIGHT CORONARY ARTERY: The right coronary artery is a large caliber vessel which gives off a PDA and PLV branch and is the dominant vessel. There is diffuse 20 to 30% stenosis SMITH to LAD: Widely patent SVG to OM 1: Widely patent SVG to diagonal: Patent FINAL IMPRESSION: 1. Diffuse lumbee CAD as described above including 95% left main stenosis, 100% proximal LAD stenosis, 70 to 80% circumflex stenosis with 20 to 30% RCA stenosis 2. Patent grafts 3 of 3 3. Elevated left sided filling pressures 4. Severe aortic stenosis with mean gradient 42 mm across the valve PLAN: 1. Aggressive risk factor modification per most recent ACC/AHA guidelines. 2. Evaluate for treatment of her aortic stenosis
--- NOTE | 2025-04-27 15:14 | P.PN ---
Subjective Progress Note Date: 04/26/25 Principal diagnosis: Reason for follow-up is pneumonia Patient is a 84-year-old female with a past medical history significant forCoronary Artery Disease (CAD), Heart Failure, Hyperlipidemia, Hypertension, Rheumatoid Arthritis (RA) was brought into the hospital for aishwarya luation of increasing shortness of breath patient did have a low-grade fever and also Rocephin increasing infiltrate right upper lobe concerning for pneumonia prompting this consultation. On today's evaluation that is 04/26/2025, the patient continues to be afebrile, the patient is on room air and breathing comfortably, the Pt denies having any chest pain or worsening cough, the patient denies having any abdominal pain no vomiting or any diarrhea. Patient white count is up to 13.69 creatinine is 1.52 troponins are elevated Objective - Vital Signs Vital signs: Vital Signs Temp 98.0 F 04/26/25 11:47 Pulse 73 04/26/25 14:20 Resp 19 04/26/25 14:20 BP 144/57 04/26/25 11:47 Pulse Ox 96 04/26/25 11:47 FiO2 Intake & Output 04/25/25 04/26/25 04/26/25 18:59 06:59 18:59 Intake Total 532.966 299.13 Output Total 1850 800 Balance -1317.034 -800 299.13 Weight 69.2 kg Intake: Intake, IV Titration 232.966 249.13 Amount Heparin Sod,Pork in 0.45% 232.966 189.13 NaCl 25,000 unit In 0.45 % NaCl 1 250ml.bag @ 12 UNITS/KG/HR 8.709 mls/hr IV .Q24H [facility] Rx#: [id number] Sodium Chloride 0.9% 1, 60 000 ml In Empty Bag 1 bag @ 1 ML/KG/HR 69.2 mls/hr IV .[id number] [facility] Rx#: [id number] Oral 300 50 Output: Urine 1850 800 Other: Voiding Method External Catheter External Catheter External Catheter - Exam GENERAL DESCRIPTION: An elderly female lying in bed in no distress RESPIRATORY SYSTEM: Unlabored breathing , decreased breath sounds at bases HEART: S1 S2 regular rate and rhythm , ABDOMEN: Soft , no tenderness EXTREMITIES: 1+ edema feet - Labs CBC & Chem 7: 04/27/25 06:12 04/27/25 06:12 Labs: Abnormal Lab Results - Last 24 Hours (Table) 04/26/25 04/26/25 Range/Units 06:50 06:50 WBC 13.69 H (4.50-10.00) 10*3/uL RBC 3.66 L (4.10-5.20) 10*6/uL Hgb 11.7 L (12.0-15.0) g/dL Hct 36.3 L (37.2-46.3) % MCV 99.2 H (80.0-97.0) fL Immature Gran # 0.05 H (0.00-0.04) 10*3/uL Neutrophils # 10.72 H (1.80-7.70) 10*3/uL Monocytes # 1.23 H (0.20-1.00) 10*3/uL BUN 53 H (7-17) mg/dL Creatinine 1.52 H (0.52-1.04) mg/dL Glucose 148 H (74-99) mg/dL Assessment and Plan (1) Fever Current Visit: Yes Status: Acute Code(s): R50.9 - FEVER, UNSPECIFIED SNOMED Code(s): 228384460 (2) Pneumonia Current Visit: Yes Status: Acute Code(s): J18.9 - PNEUMONIA, UNSPECIFIED ORGANISM SNOMED Code(s): 251327947 (3) Allergy to multiple antibiotics Current Visit: Yes Status: Acute Code(s): Z88.1 - ALLERGY STATUS TO OTHER ANTIBIOTIC AGENTS SNOMED Code(s): 113431526 Plan: 1patient presented hospital with increasing shortness of breath which is likely multifactorial keeping in mind her swelling lower extremity and likely suspicious for CHF exacerbation however the patient also have a cough congested cough and elevated white count pointing towards possible component of pneumonia as well although the procalcitonin is normal not 100% marker for ruling out bacterial pneumonia 2-patient with multiple antibiotic ALLERGIES that would limit the number of antibiotic safe to use 3-sputum culture have been requested but not collected so far 4-patient noted to have slight worsening of the white count to monitor closely for now to continue with Levaquin Dictation was produced using [employer] dictation software. please excuse any grammatical, word or spelling errors.
--- NOTE | 2025-04-27 15:15 | P.PN ---
Subjective Progress Note Date: 04/27/25 Principal diagnosis: Reason for follow-up is pneumonia Patient is a 84-year-old female with a past medical history significant forCoronary Artery Disease (CAD), Heart Failure, Hyperlipidemia, Hypertension, Rheumatoid Arthritis (RA) was brought into the hospital for aishwarya luation of increasing shortness of breath patient did have a low-grade fever and also Rocephin increasing infiltrate right upper lobe concerning for pneumonia prompting this consultation. On today's evaluation that is 04/27/2025, patient did have a temperature of 98.2 F this morning and denies having any chills, patient is on room air and breathing comfortably no chest pain or any worsening cough, the patient did not have any nausea vomiting abdominal pain or any diarrhea. Patient white count is down to 12.22, creatinine 1.57 Objective - Vital Signs Vital signs: Vital Signs Temp 98.2 F 04/27/25 09:35 Pulse 66 04/27/25 11:38 Resp 18 04/27/25 11:38 BP 106/65 04/27/25 11:38 Pulse Ox 97 04/27/25 11:38 FiO2 Intake & Output 04/26/25 04/27/25 04/27/25 18:59 06:59 18:59 Intake Total 699.13 200 310 Output Total 500 350 Balance 199.13 -150 310 Weight 72.8 kg Intake: IV 400 10 Invasive Line 2 10 Intake, IV Titration 249.13 Amount Heparin Sod,Pork in 0.45% 189.13 NaCl 25,000 unit In 0.45 % NaCl 1 250ml.bag @ 12 UNITS/KG/HR 8.709 mls/hr IV .Q24H [facility] Rx#: [id number] Sodium Chloride 0.9% 1, 60 000 ml In Empty Bag 1 bag @ 1 ML/KG/HR 69.2 mls/hr IV .[id number] [facility] Rx#: [id number] Oral 50 200 300 Output: Urine 500 350 Other: Voiding Method External Catheter External Catheter External Catheter # Bowel Movements 1 - Exam GENERAL DESCRIPTION: An elderly female lying in bed in no distress RESPIRATORY SYSTEM: Unlabored breathing , decreased breath sounds at bases HEART: S1 S2 regular rate and rhythm , ABDOMEN: Soft , no tenderness EXTREMITIES: 1+ edema feet - Labs CBC & Chem 7: 04/27/25 06:12 04/27/25 06:12 Labs: Abnormal Lab Results - Last 24 Hours (Table) 04/27/25 04/27/25 Range/Units 06:12 06:12 WBC 12.22 H (4.50-10.00) 10*3/uL RBC 3.36 L (4.10-5.20) 10*6/uL Hgb 10.8 L (12.0-15.0) g/dL Hct 33.2 L (37.2-46.3) % MCV 98.8 H (80.0-97.0) fL MCH 32.1 H (27.0-32.0) pg Immature Gran # 0.06 H (0.00-0.04) 10*3/uL Neutrophils # 9.97 H (1.80-7.70) 10*3/uL Monocytes # 1.06 H (0.20-1.00) 10*3/uL Carbon Dioxide 21 L (22-30) mmol/L BUN 49 H (7-17) mg/dL Creatinine 1.57 H (0.52-1.04) mg/dL Glucose 194 H (74-99) mg/dL Assessment and Plan (1) Fever Current Visit: Yes Status: Acute Code(s): R50.9 - FEVER, UNSPECIFIED SN OMED Code(s): 554586013 (2) Pneumonia Current Visit: Yes Status: Acute Code(s): J18.9 - PNEUMONIA, UNSPECIFIED ORGANISM SNOMED Code(s): 518193439 (3) Allergy to multiple antibiotics Current Visit: Yes Status: Acute Code(s): Z88.1 - ALLERGY STATUS TO OTHER ANTIBIOTIC AGENTS SNOMED Code(s): 829580960 Plan: 1patient presented hospital with increasing shortness of breath which is likely multifactorial keeping in mind her swelling lower extremity and likely suspicious for CHF exacerbation however the patient also have a cough congested cough and elevated white count pointing towards possible component of pneumonia as well although the procalcitonin is normal not 100% marker for ruling out bacterial pneumonia 2-patient with multiple antibiotic ALLERGIES that would limit the number of antibiotic safe to use 3-sputum culture have been requested but not collected so far 4-patient mention improving respiratory symptoms patient white count is trending down as well we will continue with the Levaquin because of her multiple antibiotic allergies Dictation was produced using dragon dictation software. please excuse any grammatical, word or spelling errors.
[2025-04-27] MEDS: SODIUM CHLORIDE 0.9% 250 ML IV SCH (15:57)
[2025-04-27] MEDS: FUROSEMIDE 40 MG TAB PO SCH (15:59)
[2025-04-27] MEDS ORDERED: SODIUM CHLORIDE 0.9% 500 ML 250 ML IV ONE (16:15)
[2025-04-27] MEDS: SODIUM CHLORIDE 0.9% 250 ML IV ONE (16:30)
[2025-04-27] MEDS: ALPRAZolam 0.5 MG TAB PO PRN (23:16)
[2025-04-28 07:08] LABS: Basophils # (A) 0.04 10*3/uL (0.00-0.10); Basophils % (A) 0.3 %; Eosinophils # (A) 0.24 10*3/uL (0.04-0.35); Eosinophils % (A) 2.1 %; HCT 30.4 % (37.2-46.3); HGB 9.9 g/dL (12.0-15.0); Lymphocytes # (A) 1.15 10*3/uL (0.90-5.00); Lymphocytes % (A) 10.0 %; MCH 32.5 pg (27.0-32.0); MCHC 32.6 g/dL (32.0-37.0); MCV 99.7 fL (80.0-97.0); Monocytes # (A) 1.13 10*3/uL (0.20-1.00); Monocytes % (A) 9.9 %; Neutrophils # (A) 8.86 10*3/uL (1.80-7.70); Neutrophils % (A) 77.4 %; Platelet Count 193 10*3/uL (140-440); RBC 3.05 10*6/uL (4.10-5.20); RDW 13.5 % (11.5-14.5); WBC 11.45 10*3/uL (4.50-10.00)
[2025-04-28 07:24] LABS: African American GFR (CKD) 21 (>60 ml/min/1.73 sqM); Anion Gap 8 mmol/L; Blood Urea Nitrogen 67 mg/dL (7-17); Calcium 8.4 mg/dL (8.4-10.2); Carbon Dioxide 21 mmol/L (22-30); Chloride 108 mmol/L (98-107); Glucose 133 mg/dL (74-99); Non-African American GFR(CKD) 18 (>60 ml/min/1.73 sqM); Potassium 4.4 mmol/L (3.5-5.1); Sodium 137 mmol/L (137-145)
--- NOTE | 2025-04-28 10:05 | P.PN ---
Subjective This is a pleasant 84 years old female with past medical history of multiple medical problems: Coronary artery disease with no history of lung disease. She does not use oxygen at home Presents because of shortness of breath that has been going on on and off for 2 weeks associate with exertional dyspnea but yesterday got really worse she has to come to emergency room although she does not have any chest pain no cough or phlegm. Little headache but no overt dizziness or weakness or numbness in the extremities. No specific GI surgery or symptom. 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 Melvin Exam she has bilateral basal crepitation and 2-3+ bilateral pitting leg edema She has been afebrile blood pressure stable. Mildly tachypneic in the mid to low 20s. Saturating 97% on 3 L oxygen via nasal cannula. She has low-grade fever about 1 drink Troponin is 1.3, chronically elevated but not to this level EKG showing sinus rhythm at [address] depression in V4-V6 and aVL. Chest x-ray showing cardiomegaly with pulmonary vascular congestion I reviewed and agree. proBNP is elevated 28,600. Patient currently on IV Lasix for milligram twice daily as well as heparin drip. Also patient received Levaquin and will continue on same dose 75 mg every 48 hours She is currently on IV Lasix 40 mg twice daily heparin drip and Levaquin and aspirin Subjective: 04/25/2025: Patient seen at bedside. No significant overnight events. Patient states she believes her breathing is slightly improved from yesterday, otherwise no other complaints concerns at this time. 04/26/2025: Patient seen at bedside. No significant overnight events. States her breathing remains around the same, not as bad as when she initially arrived on admission. Reports she is hoping that she is able to get the cardiac catheterization done today. Patient has no other complaints concerns at this time. 04/27/2025: Patient seen at bedside. No significant overnight events. Reports her breathing has not improved and still has quite a bit of work with breathing. Patient is having shortness of breath with speaking eating and ambulating. No other complaints or concerns at this time. 04/28/2025: Patient seen at bedside no acute overnight events, reports some increased work of breathing otherwise denies new symptoms Pertinent positives and negatives discussed above, a complete review of systems was preformed and all the other sytems were negative. Vitals Signs Reveiwed. General: non toxic, no distress Head: atraumatic, normocephalic, symmetric Eyes: EOMI, no lid lag, anicteric sclera, pupils equal round reactive to light ENT: Nose and ears atraumatic Neck: No cervical lymphadenopathy, trachea midline, supple Mouth: no lip lesion, mucus membranes moist Cardiovascular: S1S2 reg, grade 3/6 systolic murmur, positive dorsalis pedis pulse bilateral, 1+ bilateral pitting edema Lungs: Decreased bilateral breath sounds with mild crackles and no use of accessory muscles noted Extremities: Cool lower extremities Abdominal: soft, nontender to palpation, no guarding Psych: Alert, oriented, appropriate affect Data Reveiwed Today: Patient Labs: WBC 12.22, hemoglobin 10.8, platelets 214, neutrophils 9.97, sodium 138, potassium 4.2, bicarb 21, BUN 49, creatinine 1.57, and glucose 194. Imaging: Chest x-ray showed Increasing right perihilar and right suprahilar infiltrate Assesment and Plan: #Acute hypoxic respiratory failure likely secondary to CHF exacerbation versus pneumonia #Elevated troponin potentially secondary to above #History of CAD status post CABG #History of severe aortic stenosis status post TAVR - Cardiac catheterization performed yesterday, official report not yet received but after speaking with cardiology SECURITY GUARD it showed significant aortic stenosis and regurg indicating a need for balloon valvuloplasty - Balloon valvuloplasty planned for Sunday 04/[address] Tam will discuss procedure with the patient (04/28) - P.o. Lasix 40 mg twice daily - Heparin drip - Continue home cardiac medications including Zetia 10 mg p.o. at bedtime, Imdur 30 mg p.o. daily, aspirin, atenolol 25 mg p.o. twice daily, and Lipitor 80 mg p.o. at bedtime - Levaquin restarted today by ID, 250 mg p.o. daily - Cardiology on consult appreciate further recommendations - ID on consult, appreciate further recommendation - Plan for echo today, and if kidney function stays within normal limits patient can go for left heart cath tomorrow - Sputum culture ordered - Wean oxygen as tolerated - Cardiac telemetry - Prednisone 5 mg daily - Daily weights - Fluid restrict to 1.5 L #CKD stage IIIb: - Kidney function only slightly worsened after cardiac catheterization - Continue to monitor BMP - Switched IV Lasix to p.o. Chronic #Hyperlipidemia: - Continue home atorvastatin 80 mg p.o. at bedtime #Hypertension: - Continue home atenolol 25 mg p.o. twice daily F none E potassium 10 mill equivalents p.o. daily N heart healthy diet A as tolerated DVT ppx: Heparin drip GI ppx: Protonix 40 mg IVP daily Code Status: No code Anticipated discharge place: Pending clinical course Anticipated discharge time: Pending clinical course Objective - Vital Signs Vital signs: Vital Signs Temp 98.4 F 04/28/25 03:03 Pulse 70 04/28/25 03:03 Resp 18 04/28/25 03:03 BP 111/59 04/28/25 03:03 Pulse Ox 98 04/28/25 03:03 FiO2 Intake & Output 04/27/25 04/28/25 04/28/25 18:59 06:59 18:59 Intake Total 380 640 Balance 380 640 Weight 73.2 kg Intake: IV 20 20 Invasive Line 2 20 20 Oral 360 620 Other: Voiding Method External Catheter External Catheter # Voids 1 1 # Bowel Movements 1 - Labs CBC & Chem 7: 04/29/25 07:27 04/29/25 07:27 Labs: Abnormal Lab Results - Last 24 Hours (Table) 04/28/25 04/28/25 Range/Units 06:34 06:34 WBC 11.45 H (4.50-10.00) 10*3/uL RBC 3.05 L (4.10-5.20) 10*6/uL Hgb 9.9 L (12.0-15.0) g/dL Hct 30.4 L (37.2-46.3) % MCV 99.7 H (80.0-97.0) fL MCH 32.5 H (27.0-32.0) pg Neutrophils # 8.86 H (1.80-7.70) 10*3/uL Monocytes # 1.13 H (0.20-1.00) 10*3/uL Chloride 108 H (98-107) mmol/L Carbon Dioxide 21 L (22-30) mmol/L BUN 67 H (7-17) mg/dL Creatinine 2.34 H (0.52-1.04) mg/dL Glucose 133 H (74-99) mg/dL Assessment and Plan Assessment: Attestation Attestation/ Health And Safety Consultant Note: Attestation to Progress Note, Participation (I saw and evaluated the patient with the Resident, and I reviewed and discussed the patient with the Resident and agree with the Resident's findings and plans as documented above., management reviewed and discussed), I agree with findings & plan, Provider Signature (JOSHUA FANG, ZENAIDA Hawthorne Time with Patient: Greater than 30
[2025-04-28 12:59] LABS: HCT 32.1 % (37.2-46.3); HGB 10.4 g/dL (12.0-15.0); MCH 32.5 pg (27.0-32.0); MCHC 32.4 g/dL (32.0-37.0); MCV 100.3 fL (80.0-97.0); Platelet Count 214 10*3/uL (140-440); RBC 3.20 10*6/uL (4.10-5.20); RDW 13.3 % (11.5-14.5); WBC 11.65 10*3/uL (4.50-10.00)
--- NOTE | 2025-04-28 15:21 | P.PN ---
Subjective Progress Note Date: 04/28/25 Principal diagnosis: Reason for follow-up is pneumonia Patient is a 84-year-old female with a past medical history significant forCoronary Artery Disease (CAD), Heart Failure, Hyperlipidemia, Hypertension, Rheumatoid Arthritis (RA) was brought into the hospital for aishwarya luation of increasing shortness of breath patient did have a low-grade fever and also Rocephin increasing infiltrate right upper lobe concerning for pneumonia prompting this consultation. On today's evaluation that is 04/28/2025, Patient is afebrile patient is currently on 2 L nasal oxygen and breathing slightly comfortably, the patient denies any chest pain or cough, the patient denies any nausea vomiting did not have any abdominal pain and no diarrhea. Patient white count is 11.65 creatinine is 2.34 Objective - Vital Signs Vital signs: Vital Signs Temp 97.9 F 04/28/25 11:43 Pulse 69 04/28/25 14:06 Resp 19 04/28/25 14:06 BP 104/58 04/28/25 11:43 Pulse Ox 99 04/28/25 11:43 FiO2 Intake & Output 04/27/25 04/28/25 04/28/25 18:59 06:59 18:59 Intake Total 380 640 290 Balance 380 640 290 Weight 73.2 kg Intake: IV 20 20 30 Invasive Line 2 20 20 10 Invasive Line 3 20 Oral 360 620 260 Other: Voiding Method External Catheter External Catheter Toilet # Voids 1 1 1 # Bowel Movements 1 1 - Exam GENERAL DESCRIPTION: An elderly female lying in bed in no distress RESPIRATORY SYSTEM: Unlabored breathing , decreased breath sounds at bases HEART: S1 S2 regular rate and rhythm , ABDOMEN: Soft , no tenderness EXTREMITIES: 1+ edema feet - Labs CBC & Chem 7: 04/28/25 12:30 04/28/25 06:34 Labs: Abnormal Lab Results - Last 24 Hours (Table) 04/28/25 04/28/25 04/28/25 Range/Units 06:34 06:34 06:34 WBC 11.45 H (4.50-10.00) 10*3/uL RBC 3.05 L (4.10-5.20) 10*6/uL Hgb 9.9 L (12.0-15.0) g/dL Hct 30.4 L (37.2-46.3) % MCV 99.7 H (80.0-97.0) fL MCH 32.5 H (27.0-32.0) pg Neutrophils # 8.86 H (1.80-7.70) 10*3/uL Monocytes # 1.13 H (0.20-1.00) 10*3/uL Chloride 108 H (98-107) mmol/L Carbon Dioxide 21 L (22-30) mmol/L BUN 67 H (7-17) mg/dL Creatinine 2.34 H (0.52-1.04) mg/dL Glucose 133 H (74-99) mg/dL Hemoglobin A1c 7.3 H (<=6.0) % // Range/Units 12:30 WBC 11.65 H (4.50-10.00) 10*3/uL RBC 3.20 L (4.10-5.20) 10*6/uL Hgb 10.4 L (12.0-15.0) g/dL Hct 32.1 L (37.2-46.3) % MCV 100.3 H (80.0-97.0) fL MCH 32.5 H (27.0-32.0) pg Neutrophils # (1.80-7.70) 10*3/uL Monocytes # (0.20-1.00) 10*3/uL Chloride (98-107) mmol/L Carbon Dioxide (22-30) mmol/L BUN (7-17) mg/dL Creatinine (0.52-1.04) mg/dL Glucose (74-99) mg/dL Hemoglobin A1c (<=6.0) % Assessment and Plan (1) Fever Current Visit: Yes Status: Acute Code(s): R50.9 - FEVER, UNSPECIFIED SNOMED Code(s): 977284243 (2) Pneumonia Current Visit: Yes Status: Acute Code(s): J18.9 - PNEUMONIA, UNSPECIFIED ORGANISM SNOMED Code(s): 586917543 (3) Allergy to multiple antibiotics Current Visit: Yes Status: Acute Code(s): Z88.1 - ALLERGY STATUS TO OTHER ANTIBIOTIC AGENTS SNOMED Code(s): 365017206 Plan: 1patient presented hospital with increasing shortness of breath which is likely multifactorial keeping in mind her swelling lower extremity and likely suspicious for CHF exacerbation however the patient also have a cough congested cough and elevated white count pointing towards possible component of pneumonia as well although the procalcitonin is normal not 100% marker for ruling out bacterial pneumonia 2-patient with multiple antibiotic ALLERGIES that would limit the number of an tibiotic safe to use 3-sputum culture have been requested but not collected so far 4-patient mention improving respiratory symptoms patient white count is about the same as yesterday to continue with the Levaquin and monitor clinical course closely Dictation was produced using [employer] dictation software. please excuse any grammatical, word or spelling errors. Time with Patient: Less than 30
--- NOTE | 2025-04-28 15:34 | P.CON ---
Consult Note - . Consult date: 04/28/25 Assessment/Plan:: This is a pleasant 84 years old female with past medical history of multiple medical problems: Coronary artery disease with no history of lung disease. She does not use oxygen at home She presents because of shortness of breath that has been going on on and off for 2 weeks associate with exertional dyspnea but yesterday got really worse she has to come to emergency room although she does not have any chest pain no cough or phlegm. She had a bloody bowel movement yesterday but none today. Hemoglobin is stable. Review of Systems Review of systems CONSTITUTIONAL: No fever, no malaise, no fatigue. HEENT: No recent visual problems or hearing problems. Denied any sore throat. CARDIOVASCULAR: No orthopnea, PND, no palpitations, no syncope. PULMONARY: No shortness of breath, no cough, no hemoptysis. GASTROINTESTINAL: No diarrhea, no nausea, no vomiting, no abdominal pain. Normoactive bowel sounds. NEUROLOGICAL: No headaches, no weakness, no numbness. HEMATOLOGICAL: Denies any bleeding or petechiae. GENITOURINARY: Denies any burning micturition, frequency, or urgency. MUSCULOSKELETAL/RHEUMATOLOGICAL: Denies any joint pain, swelling, or any muscle pain. ENDOCRINE: Denies any polyuria or polydipsia. Past Medical History Past Medical History: Coronary Artery Disease (CAD), Hyperlipidemia, Hypertension, Rheumatoid Arthritis (RA) Additional Past Medical History / Comment(s): POLYMYALGIARHEAMATICA, ROSACEA History of Any Multi-Drug Resistant Organisms: None Reported Past Surgical History: Coronary Bypass/CABG, Heart Catheterization Additional Past Surgical History / Comment(s): CABG X3 in 2008, 2 HEART CATHS, LEFT CAROTID ENDARTECTOMY, ABIEL CATARACT, CRISTOBAL 05/06/15 Past Anesthesia/Blood Transfusion Reactions: No Reported Reaction Past Psychological History: No Psychological Hx Reported Smoking Status: Never smoker Past Alcohol Use History: None Reported Past Drug Use History: None Reported - Past Family History Mother Family Medical History: Hypertension Physical Exam GENERAL: The patient is alert and oriented x3, not in any acute distress. Well developed, well nourished. HEENT: Pupils are round and equally reacting to light. EOMI. No scleral icterus. No conjunctival pallor. Normocephalic, atraumatic. No pharyngeal erythema. No thyromegaly. CARDIOVASCULAR: S1 and S2 present. No murmurs, rubs, or gallops. PULMONARY: Chest is clear to auscultation, no wheezing , no crackles. ABDOMEN: Soft, nontender, nondistended, normoactive bowel sounds. No palpable organomegaly. MUSCULOSKELETAL: No joint swelling or deformity. EXTREMITIES: No cyanosis, clubbing, or pedal edema. NEUROLOGICAL: Gross neurological examination did not reveal any focal deficits. SKIN: No rashes. no petechiae. 84 year old female with GIB -Patient not currently having bloody bowel movements and hgb is stable. Patient having procedure with cardiology tomorrow. No acute surgical intervention at this time. Will continue to monitor hgb. Ari Reyes DOHar[facility] [phone]
[2025-04-29 04:45] VITALS: TEMP 97.6
[2025-04-29 05:56] LABS: Glucose,Whole Blood 153 mg/dL (70-110)
[2025-04-29] MEDS: ATORVASTATIN 80 MG TAB PO ONE (05:59)
[2025-04-29] MEDS ORDERED: ALPRAZolam 0.5 MG TAB PO PRN (06:00)
[2025-04-29] MEDS ORDERED: ALPRAZolam 0.25 MG TAB PO PRN (06:00)
[2025-04-29 08:05] LABS: Basophils # (A) 0.05 10*3/uL (0.00-0.10); Basophils % (A) 0.4 %; Eosinophils # (A) 0.44 10*3/uL (0.04-0.35); Eosinophils % (A) 3.9 %; HCT 31.2 % (37.2-46.3); HGB 10.3 g/dL (12.0-15.0); Lymphocytes # (A) 1.32 10*3/uL (0.90-5.00); Lymphocytes % (A) 11.6 %; MCH 32.8 pg (27.0-32.0); MCHC 33.0 g/dL (32.0-37.0); MCV 99.4 fL (80.0-97.0); Monocytes # (A) 1.17 10*3/uL (0.20-1.00); Monocytes % (A) 10.3 %; Neutrophils # (A) 8.35 10*3/uL (1.80-7.70); Neutrophils % (A) 73.4 %; Platelet Count 220 10*3/uL (140-440); RBC 3.14 10*6/uL (4.10-5.20); RDW 13.4 % (11.5-14.5); WBC 11.37 10*3/uL (4.50-10.00)
[2025-04-29] MEDS ORDERED: BENZOCAINE SPRAY 1 EACH MM PRN (08:17)
[2025-04-29] MEDS ORDERED: fentaNYL (PF) 50 MCG/ML 2 ML AMP IVP PRN (08:17)
[2025-04-29] MEDS ORDERED: MIDAZOLAM 2 MG/2 ML VIAL IV PRN (08:17)
[2025-04-29 08:29] LABS: ALT 27 U/L (4-34); AST 36 U/L (14-36); African American GFR (CKD) 17 (>60 ml/min/1.73 sqM); Albumin 2.9 g/dL (3.5-5.0); Alkaline Phosphatase 62 U/L (38-126); Anion Gap 9 mmol/L; Blood Urea Nitrogen 84 mg/dL (7-17); Calcium 8.8 mg/dL (8.4-10.2); Carbon Dioxide 23 mmol/L (22-30); Chloride 102 mmol/L (98-107); Glucose 124 mg/dL (74-99); Non-African American GFR(CKD) 15 (>60 ml/min/1.73 sqM); Potassium 4.6 mmol/L (3.5-5.1); Sodium 134 mmol/L (137-145); Total Protein 5.2 g/dL (6.3-8.2)
[2025-04-29] MEDS: BENZOCAINE SPRAY 1 EACH MM ONE ×2 (09:09→09:20)
[2025-04-29] MEDS: SODIUM CHLORIDE 0.9% 500 ML 500 ML IV ONE ×2 (09:13→14:00)
[2025-04-29] MEDS: SODIUM CHLORIDE 0.9% 1,000 ML IV ONE (09:13)
[2025-04-29] MEDS: fentaNYL (PF) 50 MCG/1 ML VIAL IVP ONE ×2 (09:40→14:13)
[2025-04-29] MEDS: MIDAZOLAM 2 MG/2 ML VIAL IVP ONE ×2 (09:40→14:13)
[2025-04-29 10:16] VITALS: PULSE 75
[2025-04-29 11:58] VITALS: BP 101/54; RESP 16
[2025-04-29] MEDS: HEPARIN SODIUM,PORCINE 10,000 UNIT in SODIUM CHLORIDE 0.9% 1,000 ML IRRIGATION PRN (14:01)
[2025-04-29] MEDS: HEPARIN SODIUM,PORCINE (1 ML) 2,500 UNIT in SODIUM CHLORIDE 0.9% 250 ML IRRIGATION PRN (14:01)
[2025-04-29] MEDS: LIDOCAINE 1% INJ 10MG/ML (20 ML MDV) SQ ONE ×2 (14:20→14:31)
[2025-04-29] MEDS: VERAPAMIL SYRINGE (5 MG/10 ML) INTRAARTER ONE (14:35)
[2025-04-29] MEDS: HEPARIN SODIUM 1,000 UN/ML (10ML VL) IVP ONE (14:42)
[2025-04-29] MEDS: PHENYLEPHRINE-0.9% NACL SYG 1,000 MCG/10 ML SYRINGE IVP ONE (15:06)
--- NOTE | 2025-04-29 15:45 | P.CARDCATH ---
Description of Procedure: PROCEDURES PERFORMED: Balloon aortic valvulopasty with a 21mm True Balloon, placement of TVP wire, Placement of [place] device, ultrasound guided arterial and venous access INDICATION: Severe symptomatic bioprosthetic aortic stenosis of a previous 29 mm evolute valve CONSENT:The risks, benefits and alternative therapies for the above-mentioned procedure and for both sedation/analgesia as well as necessary blood product administration, if indicated, as they pertain to this patient were explained. The patient has indicated understanding and acceptance of the risks and procedures discussed. PROCEDURE: After the risks, benefits and alternatives of the above mentioned procedure explained in detail with the patient, informed consent was obtained. Patient was noted to have moderate aortic regurgitation however worsening kidney function concerning for cardiorenal syndrome, worsening clinical status. Risks and benefits of balloon aortic valvuloplasty have been discussed with patient. Patient was taken to the catheterization lab and prepped and draped in usual fashion. Ultrasound guidance was used to assess for arterial access. 1% lidocaine was used to anesthetize the right radial artery. A 6-Scottish sheath was placed in the right radial artery using modified Seldinger technique and ultrasound guidance. A 6 Scottish sheath was placed in the left femoral artery using ultrasound guidance. Angiogram showed adequate anatomy for placement of sheath and therefore 2 Perclose's were placed at the 10:00 and 12 o'clock p osition. Next the sheath was upsized to 8 Scottish and then over a stiff wire a 12 Scottish sheath. Heparin was given. A right femoral venous 6 Scottish sheath was placed and a TVP wire was placed in the right ventricle. Pacing thresholds were checked and were adequate. Next a 6 [place] AL-1 and a straight wire was used across the valve. Pressure gradients were checked which verified severe aortic stenosis with mean gradient 45 mmHg. The AL-1 was exchanged for a safari 0.035 stiff wire. A [place] embolic protection device was placed from the right radial approach into the left common carotid and innominate artery under fluoroscopy given increased risk of thromboembolism from the previously placed TAVR valve. Next balloon aortic valvuloplasty was performed with a 21 mm true balloon with rapid ventricular pacing. Pacing was quickly lowered however blood pressure did not improve. Bedside echo showed drop in ejection fraction. Aortic angiogram was performed which showed severe aortic insufficiency. Attempted to increase pacing rate to 120 to decrease diastolic time however blood pressure continued to decline. To quickly decline despite aggressive measures. Patient was pronounced . Family was notified and all questions answered. Conscious Sedation: Patient was monitored under the direct supervision of myself for conscious sedation using Versed and fentanyl for a total duration of 52 minutes HEMODYNAMICS: Aorta: 109/67 LV: 162/18, mean gradient 45 mm across the valve FINAL IMPRESSION: 1. Severe aortic stenosis status post balloon aortic valvuloplasty with rapid decline after valvuloplasty and patient
--- NOTE | 2025-04-29 16:01 | P.PN ---
Subjective Progress Note Date: 04/29/25 SURGICAL PROGRESS NOTE CHIEF COMPLAINT: Shortness of breath HISTORY OF PRESENT ILLNESS: Surgical service following for anemia. Patient did report having 1 bloody stool. Has had no further active bleeding. Denies history of hemorrhoids. Has cardiac procedure scheduled for today. Hemoglobin stable at 10.3 PHYSICAL EXAM: VITAL SIGNS: Reviewed. GENERAL: Well-developed in no acute distress. ABDOMEN: Soft. Nondistended. Nontender. NEUROLOGIC: Alert and oriented. Cranial nerves II through XII grossly intact. ASSESSMENT: 1. 84 year old female with GIB PLAN: - Hemoglobin stable. No further active bleeding. - No surgical intervention planned at this time - Cardiac procedure scheduled for today Physician Dial Screw Assembler note has been reviewed by physician. Signing provider agrees with the documented findings, assessment, and plan of care. Attestation Patient seen and examined at bedside on 04/29/2025. No further GI bleeding is noted. Patient states that she has not had any blood in her stool. No plan for any surgical intervention. Continue cardiac management and workup. Fox Jordan DO Objective - Vital Signs Vital signs: Vital Signs Temp 97.6 F 04/29/25 07:51 Pulse 75 04/29/25 11:50 Resp 16 04/29/25 11:50 BP 101/54 04/29/25 11:50 Pulse Ox 95 04/29/25 11:50 FiO2 Intake & Output 04/28/25 04/29/25 04/29/25 18:59 06:59 18:59 Intake Total 290 75 Output Total 100 Balance 290 -25 Weight 73.5 kg Intake: IV 30 75 Invasive Line 2 10 Invasive Line 3 20 Oral 260 Output: Urine 100 Other: Voiding Method Toilet Toilet External Catheter # Voids 1 1 # Bowel Movements 1 - Labs CBC & Chem 7: 04/29/25 07:27 04/29/25 07:27 Labs: Abnormal Lab Results - Last 24 Hours (Table) 04/29/25 04/29/25 04/29/25 Range/Units 05:54 07: 07:27 WBC 11.37 H (4.50-10.00) 10*3/uL RBC 3.14 L (4.10-5.20) 10*6/uL Hgb 10.3 L (12.0-15.0) g/dL Hct 31.2 L (37.2-46.3) % MCV 99.4 H (80.0-97.0) fL MCH 32.8 H (27.0-32.0) pg Neutrophils # 8.35 H (1.80-7.70) 10*3/uL Monocytes # 1.17 H (0.20-1.00) 10*3/uL Eosinophils # 0.44 H (0.04-0.35) 10*3/uL Sodium 134 L (137-145) mmol/L BUN 84 H (7-17) mg/dL Creatinine 2.82 H (0.52-1.04) mg/dL Glucose 124 H (74-99) mg/dL POC Glucose (mg/dL) 153 H (70-110) mg/dL Total Protein 5.2 L (6.3-8.2) g/dL Albumin 2.9 L (3.5-5.0) g/dL
--- NOTE | 2025-04-29 17:20 | ECHOT ---
TRANSESOPHAGEAL ECHOCARDIOGRAM INDICATION: Aortic regurgitation. PROCEDURE NOTE: After obtaining informed consent, transesophageal echocardiogram was performed in left lateral position using an Omniplane probe. Local and IV sedation were obtained using 1 mg of Versed, and 50 mcg of fentanyl. The patient tolerated the procedure well without any obvious immediate complications. The patient received moderate conscious sedation. Total sedation time was 10 minutes. FINDINGS: 1. There is a bioprosthetic valve in aortic position with severe restriction in leaflet mobility suggestive of severe prosthetic valve stenosis. There is moderate aortic regurgitation, mostly it is intra-valvular and some of it is also perivalvular. Mitral valve shows severe mitral calcification with moderate-to- severe mitral regurgitation. There is moderate tricuspid regurgitation. There is severe left atrial enlargement. Right atrium and right ventricle seen within normal limits. 2. Left ventricle appears mildly enlarged with mild LV systolic dysfunction with an ejection fraction of 45%. There is no evidence of [id number]-fhyyt shunt by color- flow Doppler or lboiq-df-coze shunt by agitated saline contrast study. CONCLUSIONS: 1. Moderate regurgitation of the prosthetic valve. 2. Mild LV systolic dysfunction. 3. Aortic regurgitation seems mostly valvular. MMODL / IJN: [id number] /
--- NOTE | 2025-04-30 01:35 | P.DS ---
Providers Date of admission: 04/24/25 09:24 Expected date of discharge: 04/29/25 Attending physician: Maryanne Mckeon Consults: 04/24/25 09:24 Consult Physician Routine Consulting Provider: [facility] Consult Reason/Comments: aechf Do you want consulting provider notified?: Yes 04/24/25 19:35 Consult Physician Routine Consulting Provider: Sharad Troy Consult Reason/Comments: fever Do you want consulting provider notified?: Yes 04/28/25 12:17 Consult Physician Stat Consulting Provider: Fox Jordan Consult Reason/Comments: bright red bowel movement Do you want consulting provider notified?: Yes Primary care physician: [facility] Course: Diagnosis Acute hypoxic respiratory failure during valvuloplasty with 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 Presents due to of shortness of breath for 2 weeks associated with exertional dyspnea, denied any cough or phlegm. Little headache but no dizziness or weakness or numbness in the extremities. pt. complained about neck pain and ear pain whenever she have this shortness of breath on exertion which is retrieved once she sits down for about 15 minutes indicating it might be an anginal pain. Her color strainer Dr. Melvin Troponin was 1.3 > 2.0 >1.7, chronically elevated but not to this level EKG showing sinus rhythm at [address] depression in V4-V6 and aVL. Cardio consult: Cardiac cathertization - significant stenosis - CRISTOBAL 04/29/2025 completed - ballon valvuplasty was scheduled for 04/29/2025 ID consult - Acute hypoxic respiratory failure secondary to CHF exacerbation vs Pneumonia - Levaquin 250mg daily Hospital Course: Patient had acute hypoxic respiratory failure likely secondary to CHF exacerbation versus pneumonia, elevated troponin - cardiac catherization showed significant aortic stenosis. Ballon valvulopasty scheduled for today. Lasix 40mg daily, zetia 10mg qday, imdur 30mg, ASA, atenolol 25mg bid, lipitor 80mg and heparin all were added/continued. Levaquin 250mg qday through ID consult. Prednisone 5mg for dyspnea and fluid restriction at 1.5L a day. Chronic kidney disease stage IIIB, lasix 40 daily with monitoring of BMP. Continued home medications atorvastatin 80mg for HLD. Patient scheduled for ballon valvuplasty on 04/29/2025, during procedure patient decompensated rapidly and . Cam Toribio MD PGY-1 FM Dictation was produced using [employer] dictation software. please excuse any gramm atical, word or spelling errors. 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 Patient Condition at Discharge: Undetermined Plan - Discharge Summary Discharge Rx Participant: No New Discharge Prescriptions: No Action predniSONE 5 mg PO DAILY Ezetimibe [Zetia] 10 mg PO HS Atorvastatin [Lipitor] 80 mg PO HS atenoloL [Tenormin] 25 mg PO BID Cholecalciferol [Vitamin D3 (25 Mcg = 1000 Iu)] 50 mcg PO HS Ketoconazole 2% Cream [Nizoral 2%] 1 applic TOPICAL BID PRN PRN Reason: rash/irritation lisinopriL [Zestril] 10 mg PO DAILY Furosemide [Lasix] 20 mg PO DAILY Hydrocortisone Cream [Hydrocortisone 2.5% Cream] 1 applic TOPICAL DAILY PRN PRN Reason: Rash Azelaic Acid 1 applic TOPICAL DAILY PRN PRN Reason: rosacea on face clindamycin HCL [Cleocin] 600 mg PO ONCE PRN PRN Reason: dental appt Carboxymethylcellulose Sodium [Refresh Tears] 1 drop BOTH EYES QID PRN PRN Reason: Dry Eye(S) Isosorbide Mononitrate ER [Imdur] 30 mg PO DAILY Glucosam/Deny-Msm1/C/Dennis/Bosw [Glucosamine-Chondroitin Tablet] 2 tab PO HS Potassium Chloride 10 meq PO DAILY Aspirin EC [Ecotrin Low Dose] 81 mg PO DAILY metroNIDAZOLE 0.75% CREAM [Metrocream 0.75%] 1 applic TOPICAL DAILY Denosumab [Prolia] 60 mg SQ Q180D Discharge Medication List Atorvastatin [Lipitor] 80 mg PO HS 05/01/15 [History] Ezetimibe [Zetia] 10 mg PO HS 05/01/15 [History] atenoloL [Tenormin] 25 mg PO BID 05/01/15 [History] predniSONE 5 mg PO DAILY 05/01/15 [History] Cholecalciferol [Vitamin D3 (25 Mcg = 1000 Iu)] 50 mcg PO HS 05/24/15 [History] Aspirin EC [Ecotrin Low Dose] 81 mg PO DAILY 04/24/25 [History] Azelaic Acid 1 applic TOPICAL DAILY PRN 04/24/25 [History] Carboxymethylcellulose Sodium [Refresh Tears] 1 drop BOTH EYES QID PRN 04/24/25 [History] Denosumab [Prolia] 60 mg SQ Q180D 04/24/25 [History] Furosemide [Lasix] 20 mg PO DAILY 04/24/25 [History] Glucosam/Deny-Msm1/C/Dennis/Bosw [Glucosamine-Chondroitin Tablet] 2 tab PO HS 04/24/25 [History] Hydrocortisone Cream [Hydrocortisone 2.5% Cream] 1 applic TOPICAL DAILY PRN 04/24/25 [History] Isosorbide Mononitrate ER [Imdur] 30 mg PO DAILY 04/24/25 [History] Ketoconazole 2% Cream [Nizoral 2%] 1 applic TOPICAL BID PRN 04/24/25 [History] Potassium Chloride 10 meq PO DAILY 04/24/25 [History] clindamycin HCL [Cleocin] 600 mg PO ONCE PRN 04/24/25 [History] lisinopriL [Zestril] 10 mg PO DAILY 04/24/25 [History] metroNIDAZOLE 0.75% CREAM [Metrocream 0.75%] 1 applic TOPICAL DAILY 04/24/25 [History] Follow up Appointment(s)/Referral(s): Nancy Shelton MD [Primary Care Provider] - 1-2 days Discharge Disposition: - Preliminary Cause of Preliminary Cause of : Acute hypoxic respiratory failure during procedure severe aortic stenosis
--- NOTE | 2025-04-30 07:55 | CA ---
Transthoracic Echo Report Name: Danisha Cody Age: 84 Gender: F : 1940 Exam Date: 04/29/2025 14:15 Exam Location: [facility] Ht (in): 60 Wt (lb): 162 Ordering Physician: Charles Aldridge DO ([email or web address]) Attending/Referring Phys: [place] Roofer Francine Burton RDCS Procedure CPT: Indications: Valvuloplasty Cardiac Hx: Technical Quality: Fair Contrast 1: Total Dose (mL): Contrast 2: Total Dose (mL): MEASUREMENTS (Male / Female) Normal Values DOPPLER AV Peak Velocity 281.9 cm/s AV Peak Gradient 31.8 mmHg AV Mean Velocity 193.8 cm/s AV Mean Gradient 18.1 mmHg AV Velocity Time Integral 74.9 cm AI Peak Velocity 236.6 cm/s AI Peak Gradient 22.4 mmHg AI Pressure Half Time 118.0 ms FINDINGS Left Ventricle Before procedure of valvuloplasty left ventricular ejection fraction is estimated at 40-45 %. At the end of the procedure the ejection fraction was 10 to 15% Right Ventricle Right Atrium Left Atrium Mitral Valve Aortic Valve Before procedure mean gradient was 28 mmHg, moderate aortic regurgitation. After procedure mean gradient 14 mmHg. AI could not to be estimated Tricuspid Valve Pulmonic Valve Pericardium No pericardial effusion. Aorta CONCLUSIONS 1. Severe drop in the ejection fraction post valvuloplasty 2. Moderate aortic regurgitation preprocedure Limited echo. Previewed by: Dr. Shane Esparza MD (Electronically Signed) Final Date: 30 April 2025 07:54
--- NOTE | 2025-04-30 14:53 | P.PN ---
Subjective Progress Note Date: 04/29/25 Principal diagnosis: Reason for follow-up is pneumonia Patient is a 84-year-old female with a past medical history significant forCoronary Artery Disease (CAD), Heart Failure, Hyperlipidemia, Hypertension, Rheumatoid Arthritis (RA) was brought into the hospital for aishwarya luation of increasing shortness of breath patient did have a low-grade fever and also Rocephin increasing infiltrate right upper lobe concerning for pneumonia prompting this consultation. On today's evaluation that is 04/29/2025, patient has been afebrile, patient is breathing comfortably and is currently on 2 L of oxygen patient denies having any chest pain and cough has decreased in intensity, patient denies nausea vomiting or diarrhea and no abdominal pain. Patient white count is 11.37 creatinine is 2.82 Objective - Vital Signs Vital signs: Vital Signs Temp 97.6 F 04/29/25 07:51 Pulse 75 04/29/25 11:50 Resp 16 04/29/25 11:50 BP 101/54 04/29/25 11:50 Pulse Ox 95 04/29/25 11:50 FiO2 Intake & Output 04/28/25 04/29/25 04/29/25 18:59 06:59 18:59 Intake Total 290 75 Output Total 100 Balance 290 -25 Weight 73.5 kg Intake: IV 30 75 Invasive Line 2 10 Invasive Line 3 20 Oral 260 Output: Urine 100 Other: Voiding Method Toilet Toilet Toilet # Voids 1 1 # Bowel Movements 1 - Exam GENERAL DESCRIPTION: An elderly female lying in bed in no distress RESPIRATORY SYSTEM: Unlabored breathing , decreased breath sounds at bases HEART: S1 S2 regular rate and rhythm , ABDOMEN: Soft , no tenderness EXTREMITIES: 1+ edema feet - Labs CBC & Chem 7: 04/29/25 07:27 04/29/25 07:27 Labs: Abnormal Lab Results - Last 24 Hours (Table) 04/29/25 04/29/25 04/29/25 Range/Units 05:54 07: 07:27 WBC 11.37 H (4.50-10.00) 10*3/uL RBC 3.14 L (4.10-5.20) 10*6/uL Hgb 10.3 L (12.0-15.0) g/dL Hct 31.2 L (37.2-46.3) % MCV 99.4 H (80.0-97.0) fL MCH 32.8 H (27.0-32.0) pg Neutrophils # 8.35 H (1.80-7.70) 10*3/uL Monocytes # 1.17 H (0.20-1.00) 10*3/uL Eosinophils # 0.44 H (0.04-0.35) 10*3/uL Sodium 134 L (137-145) mmol/L BUN 84 H (7-17) mg/dL Creatinine 2.82 H (0.52-1.04) mg/dL Glucose 124 H (74-99) mg/dL POC Glucose (mg/dL) 153 H (70-110) mg/dL Total Protein 5.2 L (6.3-8.2) g/dL Albumin 2.9 L (3.5-5.0) g/dL Assessment and Plan (1) Fever Status: Acute Code(s): R50.9 - FEVER, UNSPECIFIED SNOMED Code(s): 804324751 (2) Pneumonia Status: Acute Code(s): J18.9 - PNEUMONIA, UNSPECIFIED ORGANISM SNOMED Code(s): 572827048 (3) Allergy to multiple antibiotics Status: Acute Code(s): Z88.1 - ALLERGY STATUS TO OTHER ANTIBIOTIC AGENTS SNOMED Code(s): 158083336 Plan: 1patient presented hospital with increasing shortness of breath which is likely multifactorial keeping in mind her swelling lower extremity and likely suspicious for CHF exacerbation however the patient also have a cough congested cough and elevated white count pointing towards possible component of pneumonia as well although the procalcitonin is normal not 100% marker for ruling out bacterial pneumonia 2-patient with multiple antibiotic ALLERGIES that would limit the number of antibiotic safe to use 3-sputum culture have been requested but not collected so far 4-patient mention improving respiratory symptoms and the patient would count slowly trending down she will finish therapy with a 5-day course of Levaquin and currently undergoing cardiac workup did have a CRISTOBAL and possible valvuloplasty as reported by the nursing staff Dictation was produced using [employer] dictation software. please excuse any grammatical, word or spelling errors. Time with Patient: Less than 30
== END 2025-04-29 15:49 | disposition expired | DRG 266 ==
LOC: EC 07:08 → 3SCARD 09:24
PROVIDERS: ADMIT Hospitalist; ATTEND Hospitalist
PROC: B2111ZZ Fluoroscopy of Multiple Coronary Arteries using Low Osmolar Contrast (ICD-10-PCS; 2025-04-26)
PROC: B2181ZZ Fluoroscopy of Left Internal Mammary Bypass Graft using Low Osmolar Contrast (ICD-10-PCS; 2025-04-26)
PROC: B2131ZZ Fluoroscopy of Multiple Coronary Artery Bypass Grafts using Low Osmolar Contrast (ICD-10-PCS; 2025-04-26)
PROC: B2111ZZ Fluoroscopy of Multiple Coronary Arteries using Low Osmolar Contrast (ICD-10-PCS; 2025-04-26)
PROC: 4A023N7 Measurement of Cardiac Sampling and Pressure, Left Heart, Percutaneous Approach (ICD-10-PCS; 2025-04-26)
PROC: X2A5312 Cerebral Embolic Filtration, Dual Filter in Innominate Artery and Left Common Carotid Artery, Percutaneous Approach, New Technology Group 2 (ICD-10-PCS; 2025-04-29)
PROC: B3101ZZ Fluoroscopy of Thoracic Aorta using Low Osmolar Contrast (ICD-10-PCS; 2025-04-29)
PROC: B246ZZ4 Ultrasonography of Right and Left Heart, Transesophageal (ICD-10-PCS; 2025-04-29)
PROC: 02U Heart and Great Vessels, Supplement (ICD-10-PCS; principal; 2025-04-29 08:30)
DX: I21.4 Non-ST elevation (NSTEMI) myocardial infarction (principal); I50.23 Acute on chronic systolic (congestive) heart failure; J18.9 Pneumonia, unspecified organism; J80 Acute respiratory distress syndrome; I13.0 Hypertensive heart and chronic kidney disease with heart failure and stage 1 through stage 4 chronic kidney disease, or unspecified chronic kidney disease; M06.9 Rheumatoid arthritis, unspecified; N18.32 Chronic kidney disease, stage 3b; Z95.2 Presence of prosthetic heart valve; N17.9 Acute kidney failure, unspecified; I44.0 Atrioventricular block, first degree; M35.3 Polymyalgia rheumatica; E78.5 Hyperlipidemia, unspecified; I25.10 Atherosclerotic heart disease of native coronary artery without angina pectoris; Z79.82 Long term (current) use of aspirin; Z79.899 Other long term (current) drug therapy; Z82.49 Family history of ischemic heart disease and other diseases of the circulatory system; Z88.1 Allergy status to other antibiotic agents; I35.2 Nonrheumatic aortic (valve) stenosis with insufficiency
CPT/HCPCS: 36415; 71046; 80048; 80053; 83036; 83605; 83880; 84145; 84484; 85025; 85027; 85610; 85730; 87636; 92986; 93005; 93306; 93312; 93320; 93325; 93459; 94760; 96374; 96375; 99291